=== PATIENT | female | born 1940 | race Caucasian/White ===

== ENCOUNTER → 2017-12-23 09:38 | Outpatient (CLI) | payer MEDICARE, OTHER, SELFPAY ==
[2017-12-22 13:08] VITALS: BP 104/60; BMI 23.9
--- NOTE | 2017-12-24 15:26 | PFTCOMP ---
COMPLETE PULMONARY FUNCTION TEST INTERPRETATION Brief HPI: Patient is a 77 year old female, currently under the care of Dr. Peñaloza, who presents to [facility] for complete pulmonary function tests secondary to diagnosis of asthma. Respiratory therapist reports good effort and reproducible results. Interpretation: Forced expiration spirometry shows a mild large airways obstructive ventilatory defect with an FEV1 of 74% predicted. There is a significant bronchodilator response in FVC by ATS criteria. Spirograms are of good quality and plateau slowly, indicating slowly emptying areas of the lungs. The respiratory flow volume loop shows decreased expiratory flow rates at all lung volumes consistent with airway obstruction. Lung volumes by body plethysmography show a normal total lung capacity at 5.65 L, 105% predicted. FRC and RV are elevated out of proportion. Lung volume measurements are consistent with air-trapping. Diffusion capacity by carbon monoxide is normal at 71 % predicted. The airway resistance is elevated. Compared to previous pulmonary function tests from 09/30/2016, there has been a significant change in FVC, FEV1 and DLCO. Impression: Partially reversible mild large airways obstructive ventilatory defect with significant improvement compared to previous testing.
--- NOTE | 2017-12-24 15:29 | PFTCOMP_ITS ---
COMPLETE PULMONARY FUNCTION TEST INTERPRETATION Brief HPI: Patient is a 77 year old female, currently under the care of Dr. Peñaloza , who presents to [facility] for complete pulmonary function tests secondary to diagnosis of asthma. Respiratory therapist reports good effort and reproducible results. Interpretation: Forced expiration spirometry shows a mild large airways obstructive ventilatory defect with an FEV1 of 74% predicted. There is a significant bronchodilator response in FVC by ATS criteria. Spirograms are of good quality and plateau slowly, indicating slowly emptying areas of the lungs. The respiratory flow volume loop shows decreased expiratory flow rates at all lung volumes consistent with airway obstruction. Lung volumes by body plethysmography show a normal total lung capacity at 5.65 L , 105% predicted. FRC and RV are elevated out of proportion. Lung volume measurements are consistent with air-trapping. Diffusion capacity by carbon monoxide is normal at 71 % predicted. The airway resistance is elevated. Compared to previous pulmonary function tests from 09/30/2016, there has been a significant change in FVC, FEV1 and DLCO. Impression: Partially reversible mild large airways obstructive ventilatory defect with significant improvement compared to previous testing.
== END ==
PROVIDERS: Family Provider Family Medicine; PCP Family Medicine; Visit Provider Internal Medicine Critical Care Medicine
DX: J45.909 Unspecified asthma, uncomplicated (principal)
CPT/HCPCS: 94060; 94726; 94729

== ENCOUNTER → 2018-03-03 10:32 | Outpatient (CLI) | payer MEDICARE, OTHER, SELFPAY ==
[2018-03-03 11:40] LABS: Rheumatoid Factor < 10.0 IU/mL (<15)
[2018-03-06 03:07] LABS: Cytoplasmic Ab (C-ANCA) <1:20 titer (Neg:<1:20)
[2018-03-06 11:17] LABS: CCP IgG Antibodies 4 units (0-19); Perinuclear Ab (P-ANCA) <1:20 titer (Neg:<1:20)
== END ==
PROVIDERS: Family Provider Family Medicine; PCP Family Medicine; Visit Provider Internal Medicine Critical Care Medicine
DX: J45.909 Unspecified asthma, uncomplicated (principal)
CPT/HCPCS: 36415; 86200; 86256; 86431

== ENCOUNTER → 2018-03-24 09:50 | Outpatient (CLI) | payer MEDICARE, OTHER, SELFPAY ==
[2018-03-24 10:04] VITALS: BP 117/68; PULSE 67; RESP 18; TEMP 36.4; O2SAT 93; BMI 23.8
[2018-03-24] MEDS: Mepolizumab 100 MG VIAL SQ (10:15)
[2018-03-24 11:13] VITALS: BP 114/61; PULSE 62; RESP 18; TEMP 36.6; O2SAT 96
== END ==
PROVIDERS: Family Provider Family Medicine; PCP Family Medicine; Visit Provider Internal Medicine Critical Care Medicine
DX: J45.909 Unspecified asthma, uncomplicated (principal)
CPT/HCPCS: 96372; J2182

== ENCOUNTER → 2018-04-21 10:00 | Outpatient (CLI) | payer MEDICARE, OTHER, SELFPAY ==
--- NOTE | 2018-04-21 10:00 | DT_ITS ---
This patient was seen during an EMR downtime April 20, 2018 - April 27, 2018. This patient may have a combination of paper and electronic documentation or all paper documentation. All documentation is viewable within the e-chart portion of [facility] for each patient visit.
== END ==
PROVIDERS: Family Provider Family Medicine; PCP Family Medicine; Visit Provider Internal Medicine Critical Care Medicine
DX: J45.909 Unspecified asthma, uncomplicated (principal)
CPT/HCPCS: 96372; J2182

== ENCOUNTER → 2019-02-11 12:48 | Outpatient (CLI) | payer MEDICARE, OTHER, SELFPAY ==
[2019-01-18 10:17] VITALS: BMI 22.5
--- NOTE | 2019-02-11 12:50 | ECHOD_ITS ---
Reason For Study: PHTN Procedure This was a 2D Doppler, Color Flow transthoracic echocardiogram. Exam performed in department. Left Ventricle Normal size and thickness. The estimated ejection fraction is 65 %. Stage 1 diastolic dysfunction. No regional wall motion abnormalities noted. Right Ventricle Mildly dilated right ventricle. Normal systolic function. Atria Normal left atrium. Normal right atrium. Normal atrial septum. Bubble contrast study negative for right to left interatrial shunt. Mitral Valve Moderate focal mitral valve thickening. Severe mitral annular calcification extending into the posterior leaflet. Mild-Moderate (1-2+) mitral valve insufficiency. Tricuspid Valve Normal tricuspid valve. Mild to moderate (1-2+) tricuspid valve insufficiency. Right ventricular systolic pressure estimated to be 36 mmHg. Aortic Valve Trisinus/trileaflet aortic valve. Prosthetic aortic valve strands. Pulmonic Valve Normal pulmonic valve. Mild (1+) pulmonic valve insufficiency. Great Vessels Normal aortic root. Normal arch. Normal inferior vena cava. Inferior vena cava collapse with sniff. Pericardium/Pleural No pericardial effusion. Medication 22 gauge I.V. with prn adaptor inserted into right arm. Performed a rapid injection of agitated mix of 9 cc saline and 1cc air to assess for atrial septal defect. MMode/2D Measurements & Calculations LVIDd: 4.3 cm IVSd: 1.4 cm Ao root diam: 3.3 cm LVIDs: 2.4 cm LVPWd: 0.66 cm LA dimension: 4.3 cm RVDd: 3.9 cm FS: 44.7 % LAV(MOD-sp4): 61.2 ml LA A4 area: 19.8 cm2 RA A4 area: 17.8 cm2 Time Measurements MV dec time: 0.38 sec Doppler Measurements & Calculations MV E max robert: 87.6 cm/sec Lat Peak E' Robert: 6.1 cm/sec Med Peak E' Robert: 5.9 cm/sec MV A max robert: 114.7 cm/sec E/E' lat: 14.4 E/E' med: 14.9 MV E/A: 0.76 MV V2 max: 155.0 cm/sec MV P1/2t max robert: 117.5 cm/sec Ao V2 max: 151.0 cm/sec MV max P.6 mmHg MV P1/2t: 150.7 msec Ao max P.1 mmHg MV V2 mean: 78.1 cm/sec MV dec slope: 228.3 cm/sec2 Ao V2 mean: 89.4 cm/sec MV mean P.9 mmHg Ao mean P.8 mmHg MV V2 VTI: 55.1 cm MVA(P1/2t): 1.5 cm2 Ao V2 VTI: 29.2 cm LV V1 max: 100.0 cm/sec MR max robert: 484.2 cm/sec PA V2 max: 96.3 cm/sec LV V1 max P.0 mmHg MR max P.8 mmHg LV V1 mean P.7 mmHg MR mean robert: 361.8 cm/sec LV V1 mean: 58.6 cm/sec MR mean P.4 mmHg LV V1 VTI: 21.8 cm MR VTI: 165.9 cm TR max robert: 276.9 cm/sec PI dec slope: 179.0 cm/sec2 TR max P.7 mmHg Interpretation Summary The estimated ejection fraction is 65 %. Stage 1 diastolic dysfunction. Mildly dilated right ventricle. Bubble contrast study negative for right to left interatrial shunt. Mild-Moderate (1-2+) mitral valve insufficiency. Mild to moderate (1-2+) tricuspid valve insufficiency. Right ventricular systolic pressure estimated to be 36 mmHg. Compared to echo report dated 09/15/2017, no appreciable changes noted. Ordering Physician: Kaden Lainez Referring Physician: Kaden Lainez Performed By: Osmany Silveira RCS
== END ==
PROVIDERS: Family Provider Family Medicine; PCP Family Medicine; Referring Provider Internal Medicine Cardiovascular Disease; Visit Provider Internal Medicine Cardiovascular Disease
DX: Z98.890 Other specified postprocedural states (principal)
CPT/HCPCS: 93306; A4216

== ENCOUNTER → 2020-05-31 10:30 | Outpatient (CLI) | payer MEDICARE, OTHER, SELFPAY ==
[2020-02-17 09:27] VITALS: BMI 21.6
--- NOTE | 2020-05-31 10:32 | ECHOD_ITS ---
Reason For Study: PHTN Procedure This was a 2D Doppler, Color Flow transthoracic echocardiogram. Exam performed in department. Left Ventricle Normal size and thickness. The estimated ejection fraction is 65 %. Stage 1 diastolic dysfunction. No regional wall motion abnormalities noted. Right Ventricle Normal size and thickness. Normal systolic function. Atria The left atrium is moderately enlarged. Normal right atrium. Normal atrial septum. Mitral Valve Mild diffuse mitral valve thickening. Severe mitral annular calcification extending into the posterior leaflet. Moderately severe (3+) mitral valve insufficiency. Tricuspid Valve Normal tricuspid valve. Mild to moderate (1-2+) tricuspid valve insufficiency. Right ventricular systolic pressure estimated to be 37 mmHg. Mild pulmonary hypertension. Aortic Valve Trisinus/trileaflet aortic valve. Pulmonic Valve Normal pulmonic valve. Great Vessels Normal aortic root. Normal arch. Normal inferior vena cava. Inferior vena cava collapse with sniff. Pericardium/Pleural No pericardial effusion. MMode/2D Measurements & Calculations LVIDd: 4.6 cm IVSd: 0.93 cm Ao root diam: 3.5 cm LVIDs: 3.0 cm LVPWd: 0.82 cm RVDd: 3.4 cm FS: 36.1 % LAV(MOD-bp): 112.4 ml LVAd ap4: 26.5 cm2 SV(MOD-sp4): 48.8 ml LAV(MOD-bp) Indexed: 65.1 ml/m2 EDV(MOD-sp4): 79.1 ml LAV(MOD-sp2): 137.5 ml EDV(sp4-el): 78.2 ml LAV(MOD-sp4): 86.5 ml LVAs ap4: 15.0 cm2 ESV(MOD-sp4): 30.3 ml ESV(sp4-el): 30.3 ml EF(MOD-sp4): 61.7 % EF(sp4-el): 61.3 % SV(sp4-el): 47.9 ml LA A4 area: 26.4 cm2 LA dimension(2D): 4.8 cm RA A4 area: 18.9 cm2 Time Measurements MV dec time: 0.44 sec Doppler Measurements & Calculations MV E max robert: 115.0 cm/sec Lat Peak E' Robert: 7.4 cm/sec Med Peak E' Robert: 4.2 cm/sec MV A max robert: 132.8 cm/sec E/E' lat: 15.6 E/E' med: 27.4 MV E/A: 0.87 MV V2 max: 125.1 cm/sec Ao V2 max: 140.6 cm/sec AI max robert: 360.0 cm/sec MV max P.3 mmHg Ao max P.9 mmHg AI max P.8 mmHg MV V2 mean: 65.0 cm/sec MV mean P.2 mmHg AI dec slope: 131.6 cm/sec2 MV V2 VTI: 51.7 cm AI P1/2t: 801.1 msec LV V1 max: 102.2 cm/sec PA V2 max: 110.4 cm/sec TR max robert: 301.0 cm/sec LV V1 max P.2 mmHg TR max P.7 mmHg MV P1/2t-pr_phl: 106.5 msec Interpretation Summary The estimated ejection fraction is 65 %. Stage 1 diastolic dysfunction. The left atrium is moderately enlarged. Moderately severe (3+) mitral valve insufficiency. Mild to moderate (1-2+) tricuspid valve insufficiency. Right ventricular systolic pressure estimated to be 37 mmHg. Mild pulmonary hypertension. Compared to echo report dated 02/11/2019, LV function has remained the same, but might regurgitation is gone from mild to moderate to moderately severe. Ordering Physician: Kaden Lainez Referring Physician: COURT VIERA Performed By: Elidia Amos, LANI, RVT
== END ==
PROVIDERS: PCP Family Medicine; Referring Provider Internal Medicine Cardiovascular Disease; Visit Provider Internal Medicine Cardiovascular Disease
DX: I27.20 Pulmonary hypertension, unspecified (principal); I36.1 Nonrheumatic tricuspid (valve) insufficiency
CPT/HCPCS: 93306

== ENCOUNTER → 2021-07-31 12:39 | Outpatient (CLI) | payer MEDICARE, OTHER, SELFPAY ==
--- NOTE | 2021-07-31 12:41 | ECHOD_ITS ---
Reason For Study: Nonrheumatic mitral valve insufficiency, TR. Procedure This was a 2D Doppler, Color Flow transthoracic echocardiogram. The exam was of adequate technical quality. Exam performed in department. Left Ventricle Normal LV size. Mid cavitary false tendon noted. Left ventricular systolic function is normal. The estimated ejection fraction is 55 %. No regional wall motion abnormalities noted. Right Ventricle Normal RV size. Normal systolic function. Atria The left atrium is severely enlarged. The right atrium is mildly enlarged. No doppler evidence for ASD. Mitral Valve There is severe mitral annular calcification. Extension of the mitral annular calcification onto the base of the posterior mitral valve leaflet. Mild diffuse mitral valve thickening. The mitral valve chordae are thickened and/or calcified. Moderately severe (3+) mitral valve insufficiency. Tricuspid Valve Normal tricuspid valve. Moderate (2+) tricuspid valve insufficiency. Right ventricular systolic pressure estimated to be 45 mmHg. Aortic Valve Trisinus/trileaflet aortic valve. Mild diffuse aortic valve thickening. Mild focal aortic valve calcification. Trivial aortic valve insufficiency. Pulmonic Valve The pulmonic valve is not well visualized. Trivial pulmonic valve insufficiency. Great Vessels Normal sized aortic root. Pericardium/Pleural No pericardial effusion. MMode/2D Measurements & Calculations LVIDd: 5.0 cm IVSd: 1.1 cm Ao root diam: 3.1 cm LVIDs: 3.4 cm LVPWd: 0.99 cm RVDd: 3.3 cm FS: 32.1 % LAV(MOD-bp): 112.0 ml LA A4 area: 30.9 cm2 LA dimension(2D): 4.9 cm LAV(MOD-bp) Indexed: 63.9 ml/m2 LAV(MOD-sp2): 107.8 ml LAV(MOD-sp4): 116.8 ml RA A4 area: 23.1 cm2 Doppler Measurements & Calculations MV E max robert: 137.9 cm/sec Lat Peak E' Robert: 15.1 cm/sec Med Peak E' Robert: 7.9 cm/sec MV A max robert: 47.2 cm/sec E/E' lat: 9.2 E/E' med: 17.6 MV E/A: 2.9 MV V2 max: 155.3 cm/sec Ao V2 max: 100.7 cm/sec LV V1 max: 84.9 cm/sec MV max P.7 mmHg Ao max P.1 mmHg LV V1 max P.9 mmHg MV V2 mean: 68.6 cm/sec MV mean P.4 mmHg MV V2 VTI: 33.4 cm MR max robert: 532.5 cm/sec PA V2 max: 61.8 cm/sec TR max robert: 311.1 cm/sec MR max P.5 mmHg TR max P.9 mmHg MR mean robert: 388.7 cm/sec MR mean P.4 mmHg MR VTI: 176.9 cm ECHO/Echo Complete Interpretation Summary Left ventricular systolic function is normal. The estimated ejection fraction is 55 %. Mid cavitary false tendon noted. The left atrium is severely enlarged. The right atrium is mildly enlarged. There is severe mitral annular calcification. Extension of the mitral annular calcification onto the base of the posterior mi tral valve leaflet. Mild diffuse mitral valve thickening. The mitral valve chordae are thickened and/or calcified. Moderately severe (3+) mitral valve insufficiency. Moderate (2+) tricuspid valve insufficiency. Mild diffuse aortic valve thickening. Mild focal aortic valve calcification. Trivial aortic valve insufficiency. Trivial pulmonic valve insufficiency. Right ventricular systolic pressure estimated to be 45 mmHg. Transmitral diastolic flow velocities suggest diastolic dysfunction (pseudonorm al pattern). Comment: Small mobile echodensity on the ventricular aspect of the aortic valve appearing compatible with a Lamble's excrescence. Ordering Physician: Александр Hernández Referring Physician: Yemi Peñaloza Performed By: Namrata Ayala, RDCS, RVT
== END ==
PROVIDERS: PCP Family Medicine; Referring Provider Internal Medicine Cardiovascular Disease; Visit Provider Internal Medicine Cardiovascular Disease
DX: I34.0 Nonrheumatic mitral (valve) insufficiency (principal); I49.49 Other premature depolarization; I38 Endocarditis, valve unspecified; E78.5 Hyperlipidemia, unspecified; I43 Cardiomyopathy in diseases classified elsewhere
CPT/HCPCS: 93225; 93226; 93306

== ENCOUNTER 2021-10-16 10:12 | Day surgery (SDC) | payer MEDICARE, OTHER, SELFPAY ==
[2021-10-15 10:26] VITALS: BMI 23.5
--- NOTE | 2021-10-15 18:05 | HP.PCM_ITS ---
History and Physical Date of Admission: 10/16/21 [facility] [id number] [place], [place] [phone] OFFICE VISITDate of Service: 09/21/21 MR#:[id number]:[id number]: BOZENA EDWARDS YRep #:[id number] Provider: HALLE Ferguson/Sex: 81/F [place] [place] HPI HPI History of Present Illness Details: This is an 81-year-old female that presents here today for cardiovascular follow-up. She has a history of nonischemic coronary artery disease, elevated pulmonary pressures, hypertension and hyperlipidemia. She was recently diagnosed with Afib. She notes that she is tired. She notes that over the several months she has been more SOB. She does have some edema. This does get worse when she is on her feet for too long. She does sometimes feel her heart racings. She finds that with exertional things she is more fatigue.She does not have any lightheadedness/dizziness. Intake Vital Signs 09/21/21 14:31 Height 5 ft 7 in Weight: 150 lb BMI 23.5 BP 121/71 H Blood Pressure Location Lt brachial Position Sitting Respiration 18 Pulse 87 Pulse Source Monitor Pulse Oximetry (%) 95 Intake Visit Reasons: Atrial fibrillation Communications Lead Required: No Accompanied by: None Is patient in pain?: No Allergies No Known Allergies Allergy (Verified 09/21/21 14:31) Medications aspirin 81 mg tablet,delayed release 81 mg PO QDAY 11/22/17 [History Confirmed 09/21/21] calcium carb-Ca gluc 500 mg calcium-magnesium ox-Mg gluc 250 mg tablet tab PO DAILY 11/22/17 [History Confirmed 07/11/21] fluticasone propionate 50 mcg/actuation nasal spray,suspension 50 mcg INTRANASAL DAILY 11/22/17 [History Confirmed 07/11/21] omeprazole 20 mg capsule,delayed release 20 mg PO DAILY 11/22/17 [History Confirmed 07/11/21] fluticasone 500 mcg-salmeterol 50 mcg/dose blistr powdr for inhalation 1 inh INHALATION Q12H 06/12/18 [History Confirmed 07/11/21] loratadine 10 mg tablet 10 mg PO DAILY 02/17/20 [History Confirmed 07/11/21] atorvastatin 10 mg tablet 10 mg PO QDAY #90 tab 07/09/21 [Rx Confirmed 09/21/21] losartan 25 mg tablet 25 mg PO QDAY #90 tab 07/09/21 [Rx Confirmed 09/21/21] albuterol sulfate 2.5 mg INHALATION Q4H PRN 07/11/21 [History Confirmed 09/21/21] albuterol sulfate 90 mcg/actuation aerosol inhaler 1 inh INHALATION ONCE PRN 07/11/21 [History Confirmed 09/21/21] dexamethasone sodium phosphate 0.1 % eye drops 1 applic OTIC (EAR) BID 07/11/21 [History Confirmed 07/11/21] levothyroxine 150 mcg tablet 150 mcg PO DAILY 07/11/21 [History Confirmed 09/21/21] multivitamin 1 tab PO DAILY 07/11/21 [History Confirmed 07/11/21] amiodarone 200 mg tablet 200 mg PO DAILY #30 tab 08/06/21 [Rx Confirmed 09/21/21] hydrochlorothiazide 12.5 mg tablet 12.5 mg PO DAILY #90 tab 08/13/21 [Rx Confirmed 09/21/21] apixaban 5 mg tablet 5 mg PO BID #180 tab 08/24/21 [Rx Confirmed 09/21/21] metoprolol succinate 25 mg tablet,extended release 24 hr 25 mg PO DAILY #90 tab 09/10/21 [Rx Confirmed 09/21/21] [facility] Medical History Asthma Atrial fibrillation Atrial tachycardia, paroxysmal Bronchitis Cardiac aneurysm Cardiomyopathy in disease classified elsewhere Ectopic cardiac beats GERD (gastroesophageal reflux disease) Hyperlipidemia Hypothyroidism Kidney stone 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 Mitral valve annular calcification Nonrheumatic mitral (valve) insufficiency On amiodarone therapy Other secondary pulmonary hypertension Palpitations SOB (shortness of breath) Valvular heart disease Surgical History History of nasal septoplasty History of right and left heart catheterization (07/09/16) Family History Mother Heart disease Brother A-fib Sister A-fib Social History Smoking Status: Never smoker second hand exposure: No alcohol intake: never substance use type: does not use caffeine: Yes Type: coffee ROS Const Const: Positive for fatigue; Negative for weakness, headache(s), frequent falls, excessive sweating, weight gain or weight loss Eyes Eyes: Negative for blind spots, loss of peripheral vision, transient loss of vision, blurry vision, change in vision or double vision ENT ENT: Negative for headache(s), dizziness, tinnitus, Nosebleed/epistaxis or balance problems Cardio Chest Pain: No Palpitations: No Edema: None Muscle aches with walking: None Resp Respiratory: Positive for SOB with activity; Negative for SOB at rest, SOB orthopnea\SOB lying down or Cough GI GI: Negative nausea, vomiting, heartburn, bloating, vomiting blood/hematemesis, bright, red blood in stools or black,tarry stools : Negative for hematuria Musc Musc: Negative for muscle aches/ myalgia, muscle weakness, joint pain or balance problems Skin Skin: Negative rash or wounds Neuro Neuro: Negative for dizziness, lightheadedness, near syncope, syncope, orthostatic symptoms, frequent falls, headache(s), weakness, confusion, memory loss, restless legs, blurry vision or double vision [place] Hematologic/Lymphatic: Negative for easy bleeding or easy bruising Endo Endo: Positive for fatigue; Negative for cold intolerance, heat intolerance or excessive sweating Psych Psych: Negative for anxiety or depression Allergy Allergy/Immunology: Negative for rash Cardiology Exam Const Appearance: cooperative, healthy appearing, comfortable, no acute distress and well developed Nutritional Appearance: average body habitus Orientation: alert, awake and oriented x3 Head Head: normal to inspection Ears: hearing grossly normal bilaterally Nose: external nose normal Face and Sinus: face symmetric Mouth: oral mucosae normal, lip normal and moist mucous membranes Eyes General: appearance normal, both eyes and all related structures Eyelids: eyelids normal Conjunctivae: conjunctivae normal Pupils: PERRL EOM: EOM intact bilaterally Neck Neck: normal visual inspection and trachea midline; Negative no JVD Carotids: Negative bruit Chest Chest inspection: normal inspection of the chest Auscultation: Bilateral: Clear to Auscultation Cardio Palpation: normal PMI Rate: regular rate Rhythm: irregularly irregular Heart sounds: S1 normal and S2 normal; Negative rub, gallop or murmur GI GI: soft, no hepatosplenomegaly and bowel sounds present Neuro General: patient alert, patient awake, patient oriented x3 and CN's II-XI intact bilaterally Extremities Pulses: Normal: Right Posterior Tibial Pulse, Left Posterior Tibial Pulse, Right Radial Pulse and Left Radial Pulse Lower Extremity Edema: None: Bilateral Psych Psychological: normal affect Supplemental Info Supplemental Information Echocardiogram from 05/31/2020: Interpretation Summary The estimated ejection fraction is 65 %. Stage 1 diastolic dysfunction. The left atrium is moderately enlarged. Moderately severe (3+) mitral valve insufficiency. Mild to moderate (1-2+) tricuspid valve insufficiency. Right ventricular systolic pressure estimated to be 37 mmHg. Mild pulmonary hypertension. Compared to echo report dated 02/11/2019, LV function has remained the same, but might regurgitation is gone from mild to moderate to moderately severe. Echocardiogram 07/2021: Left ventricular systolic function is normal. The estimated ejection fraction is 55 %. Mid cavitary false tendon noted. The left atrium is severely enlarged. The right atrium is mildly enlarged. There is severe mitral annular calcification. Extension of the mitral annular calcification onto the base of the posterior mitral valve leaflet. Mild diffuse mitral valve thickening. The mitral valve chordae are thickened and/or calcified. Moderately severe (3+) mitral valve insufficiency. Moderate (2+) tricuspid valve insufficiency. Mild diffuse aortic valve thickening. Mild focal aortic valve calcification. Trivial aortic valve insufficiency. Trivial pulmonic valve insufficiency. Right ventricular systolic pressure estimated to be 45 mmHg. Transmitral diastolic flow velocities suggest diastolic dysfunction (pseudonormal pattern). Comment: Small mobile echodensity on the ventricular aspect of the aortic valve appearing compatible with a Lamble's excrescence. 24 HM 07/2021: 100% AFib. Labs: No Data to Display Diagnostics: Electrocardiogram Echocardiogram Pulmonary: No Data to Display Assessment and Plan Assessment and Plan (1) Atrial fibrillation: Status: Acute Orders: Orders: 12 Lead EKG performed by [facility] Today Plan - Ale NERI, PA: Feel that pt is aware of her Afib. Feel that she would benefit from A cardioversion. She would like to think about this. If she agrees would like to pursue after she has been anticoagulated for 1 month. If she does not agree we will then need to consider whether or not she needs to remain on her amiodarone. (2) Mitral valve annular calcification: Status: Chronic Comment: Severe pre echo 02/17/2019 Plan - HALLE Sorenson: Stable, will continue to monitor with echoes. 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 We will continue with current medical treatment. 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 Yemi Peñaloza MD ~ Assessment & Plan Addt'l Comments I have re-examined the patient. There are no clinical changes since date of exam
[2021-10-16 10:40] LABS: Anion Gap 8 (5-15); BUN 11 mg/dL (7-18); BUN/Creat Ratio 11.5 RATIO (10-20); Calcium,Total 8.8 mg/dL (8.5-10.1); Chloride 97 mmol/L (98-107); Creatinine, Serum 0.95 mg/dL (0.55-1.02); EST Glomerular Filtration Rate 60 mL/min (>60); Est Glom Filt Rate - Afr Amer 72 mL/min (>60); Estimated Creatinine Clearance 45.93 ml/min; Glucose 98 mg/dL (74-106); Potassium 4.3 mmol/L (3.5-5.1); Sodium Level 132 mmol/L (136-145)
--- NOTE | 2021-10-16 12:38 | CARDIOVERS_ITS ---
Cardioversion Cardioversion: Date: 10-16-2021 Procedure: Synchronized Biphasic DC Cardioversion Indications: Atrial fibrillation Consent: Per the Patient Anesthesia: per Dr. Hudson of pulmonology and critical care medicine with propofol 40 mg IV push total Procedure: Synchronized Biphasic DC Cardioversion: 200 J x 1: Result: Sinus rhythm; PACs Complications: no apparent complications This note was generated with [employer] software. It may contain incorrect words, spelling, and punctuation that were not noted in checking the note before signing.
--- NOTE | 2021-10-16 14:59 | PRO.PCM_ITS ---
Assessment & Plan Assessment/Plan (1) Atrial fibrillation: (2) On amiodarone therapy: (3) Nonrheumatic tricuspid (valve) insufficiency: (4) Abnormal PFTs (pulmonary function tests): Procedure Report Date of Procedure: 10/16/21 CONSCIOUS SEDATION REPORT BRIEF HISTORY OF PRESENT ILLNESS: The patient is an 81-year-old female who presented to [facility] for an elective outpatient cardioversion due to underlying atrial fibrillation. The patient reports no PO intake since midnight, but is currently therapeutic on anticoagulation. The patient does not have a history of SANDER. The patient reports no history of smoking or COPD. The patient denies any recent constitu tional symptoms such as fevers, chills, nausea or vomiting. The patient denies previous applicable anesthetic complications. Patient's last ejection fraction was 55%. Patient did take Eliquis on the day of the procedure. Patient is very hard of hearing, but does have hearing aids in place. These were removed. Patient reports that most of her symptoms revolve around fatigue and decreased exercise tolerance. PHYSICAL EXAMINATION: VITAL SIGNS: Reviewed and were acceptable. GENERAL: The patient is a female, in no apparent distress, speaking in full sentences. HEENT: Normocephalic, atraumatic. Mucous membranes are moist and pink. Good mouth opening noted. Trachea is midline. Good neck mobility. MP I CHEST: S1, S2 irregularly irregular. No murmurs, rubs or gallops were noted. LUNGS: Clear to auscultation bilaterally without appreciable wheezes, rales or rhonchi. ABDOMEN: Soft, nontender, nondistended. Positive bowel sounds. EXTREMITIES: There is no clubbing, cyanosis or edema. ASA Class: II DESCRIPTION OF PROCEDURE: After confirmation of informed consent, the patient's anesthesia plan was reviewed in detail. Propofol was chosen. Risks and benefits were reviewed and the patient agreed to proceed. At 12:14 PM, the patient was given 40 mg of propofol. The patient achieved an appropriate level of sedation and received 1 attempt synchronized cardioversion, at [address] Hernández at the bedside. This was successful in achieving normal sinus rhythm. The patient was monitored until 12:30 PM, at which time the patient reached their baseline mental status and function. The patient tolerated the procedure well. COMPLICATIONS: None ESTIMATED BLOOD LOSS: None RECOMMENDATIONS: Okay to recover in usual fashion. Procedures Pulmonary 9xxxx: [id number] Con Sedation
== END 2021-10-16 13:27 | disposition home or self-care (01) ==
LOC: CLSP 10:15
PROVIDERS: PCP Family Medicine; Referring Provider Internal Medicine Cardiovascular Disease; Visit Provider Internal Medicine Cardiovascular Disease
DX: I48.91 Unspecified atrial fibrillation (principal); I36.1 Nonrheumatic tricuspid (valve) insufficiency; R94.2 Abnormal results of pulmonary function studies; I25.10 Atherosclerotic heart disease of native coronary artery without angina pectoris; E78.5 Hyperlipidemia, unspecified; I10 Essential (primary) hypertension; R06.02 Shortness of breath; J45.909 Unspecified asthma, uncomplicated; K21.9 Gastro-esophageal reflux disease without esophagitis; I42.9 Cardiomyopathy, unspecified; E03.9 Hypothyroidism, unspecified; Z79.899 Other long term (current) drug therapy; Z79.82 Long term (current) use of aspirin; Z79.01 Long term (current) use of anticoagulants; Z79.890 Hormone replacement therapy
CPT/HCPCS: 36415; 80048; 92960; 93005; J7040; J2405

== ENCOUNTER → 2022-10-23 | Outpatient (CLI) | payer MEDICARE, OTHER, SELFPAY ==
[2022-10-23 08:06] LABS: Absolute Lymphocyte Count 1.55 X10^3/uL (0.83-4.51); Absolute Neutrophil Count 3.2 X10^3/uL (2.0-7.7); Basophil# 0.14 X10^3/uL; Basophil% 2.1 % (0-1); Eosinophil# 0.95 X10^3/uL; Eosinophils% 14.3 % (0-5); Hematocrit 32.1 % (37-47); Hemoglobin 10.1 g/dL (12.0-15.0); Lymphocyte # 1.55 X10^3/ul (0.83-4.51); Lymphocyte % 23.3 % (19-41); Mean Corp Hgb Conc 31.5 g/dL (32-36); Mean Corpuscular Hgb 29.1 pg (27.0-32.0); Mean Corpuscular Volume 92.5 fL (81-99); Mean Platelet Vol. 9.9 fl (6.2-12.0); Monocyte# 0.83 X10^3/uL; Monocyte% 12.5 % (0-10); NRBC Flagged by Analyzer 0 % (0-5); Neutrophil # 3.17 X10^3/uL (2.7-7.7); Neutrophil % 47.6 % (47-70); Platelet Count 322 K/mm3 (150-450); RBC Distribution Width CV 13.6 % (11.6-14.6); Red Blood Count 3.47 M/mm3 (4.2-5.4); White Blood Count 6.7 K/mm3 (4.4-11.0)
[2022-10-26 19:07] LABS: Aspirgillus flavus Negative (Neg:<1:1); Aspirgillus fumigatus Negative (Neg:<1:1); Aspirgillus niger Negative (Neg:<1:1)
[2022-10-26 20:26] LABS: Immunoglobulin E 146 IU/mL (6-495)
[2022-10-27 08:08] LABS: Alternaria tenuis <0.10 kU/L (Class 0); Ash, White <0.10 kU/L (Class 0); Aspergillus fumigatus <0.10 kU/L (Class 0); Bermuda Grass <0.10 kU/L (Class 0); Birch <0.10 kU/L (Class 0); Black Walnut <0.10 kU/L (Class 0); Cat Hair / Dander,Stand <0.10 kU/L (Class 0); Cedar, Mountain <0.10 kU/L (Class 0); Cladosporium herbarum <0.10 kU/L (Class 0); Cockroach, American <0.10 kU/L (Class 0); Cottonwood <0.10 kU/L (Class 0); D farinae Mite <0.10 kU/L (Class 0); D pteronyssinus <0.10 kU/L (Class 0); Dog Epithelia <0.10 kU/L (Class 0); Elm, American White <0.10 kU/L (Class 0); Immunoglobulin E 127 IU/mL (6-495); Maple/Box Elder <0.10 kU/L (Class 0); Mulberry, White <0.10 kU/L (Class 0); Oak, White <0.10 kU/L (Class 0); Pecan <0.10 kU/L (Class 0); Penicillium Notatum <0.10 kU/L (Class 0); Pigweed, Rough <0.10 kU/L (Class 0); Ragweed, Short/Common <0.10 kU/L (Class 0); Russian Thistle <0.10 kU/L (Class 0); Sheep Sorrel <0.10 kU/L (Class 0); Sycamore, American <0.10 kU/L (Class 0); Timothy Grass <0.10 kU/L (Class 0)
[2022-10-27 10:46] LABS: Mouse Urine <0.10 kU/L (Class 0)
== END | disposition home or self-care (01) ==
LOC: PAVLAB 07:51
PROVIDERS: PCP Family Medicine; Referring Provider Internal Medicine Critical Care Medicine; Visit Provider Internal Medicine Critical Care Medicine
DX: J45.50 Severe persistent asthma, uncomplicated (principal)
CPT/HCPCS: 36415; 82785; 85025; 86003; 86606

== ENCOUNTER 2023-03-04 10:44 | Emergency (ER) | payer MEDICARE, OTHER, SELFPAY ==
[2023-03-04 10:45] VITALS: BP 150/72; PULSE 64; RESP 18; TEMP 36.1; O2SAT 98
--- NOTE | 2023-03-04 11:25 | CT_ITS ---
STUDY: CT BRAIN WITHOUT CONTRAST REASON FOR EXAM: Female, 83 years old. Head injury on anticoagulant RADIATION DOSAGE (If Supplied By Facility): CTDIvol = ( 44.99 ) mGy, DLP = ( 846.73 ) mGycm TECHNIQUE: Transaxial CT imaging of the brain was performed without administration of intravenous contrast material. Individualized dose optimization techniques were used for this CT. COMPARISON: No relevant priors. FINDINGS: Small scalp hematoma overlying the right frontoparietal bone. Normal calvarium. There is mild cerebral atrophy with widening of the extra-axial spaces and ventricular dilatation. There are areas of decreased attenuation within the white matter tracts of the supratentorial brain, consistent with microvascular disease changes. Normal basal ganglia and thalami. Normal brainstem. Normal cerebellum. There is no intracranial hemorrhage. There are no findings of an acute ischemic infarction. Atherosclerotic calcification of the cavernous portions of the internal carotid arteries bilaterally. Air-fluid level is seen in the left maxillary sinus and left sphenoid sinus. Partial opacification of the frontal sinuses and the ethmoid sinuses. CT/Brain/Head without Contrast IMPRESSION: Chronic involutional changes of the brain. Sinusitis. Electronically Signed: Trey Miles MD at 12:13 EDT ,
--- NOTE | 2023-03-04 11:25 | CT_ITS ---
STUDY: CT CERVICAL SPINE WITHOUT CONTRAST REASON FOR EXAM: Female, 83 years old. PAIN, TRAUMA RADIATION DOSAGE (If Supplied By Facility): CTDIvol = ( 14.03 ) mGy, DLP = ( 286.49 ) mGycm TECHNIQUE: High resolution transaxial imaging was performed without contrast material. Sagittal and coronal images were reconstructed. Individualized dose optimization techniques were used for this CT. COMPARISON: None FINDINGS: Normal craniovertebral junction. There are degenerative changes of the anterior atlantoaxial articulation. There is a 6.9 mm x 6.8 mm well-defined cystic change in the posterior midportion of the dens. There is an exaggerated cervical lordosis. Normal vertebral bodies and posterior osseous elements. C2-3: Facet joint osteoarthritis and hypertrophy more prominent on the left side. Uncovertebral arthrosis. No significant stenosis seen. C3-4: Facet joint osteoarthritis and hypertrophy worse on the left side with uncovertebral arthrosis. Mild degree of left neural foraminal stenosis. C4-5: Facet joint osteoarthritis and hypertrophy worse on the left side. Mild degree of left neural foraminal stenosis. C5-6: Mild disc space narrowing. Facet joint osteoarthritis and hypertrophy worse on the left side with uncovertebral arthrosis. Moderate degree of bilateral neural foraminal stenosis worse on the left side. C6-7: Normal endplates. Normal disc height and morphology. Normal central canal and intervertebral neuroforamina. C7-T1: Normal endplates. Normal disc height and morphology. Normal central canal and intervertebral neuroforamina. Atherosclerotic plaque formation of the carotid bifurcations and aortic arch. CT/Spine Cervical without Contras IMPRESSION: Multilevel degenerative changes, as described above. Electronically Signed: Trey Miles MD at 12:15 EDT ,
--- NOTE | 2023-03-04 11:25 | RAD_ITS ---
STUDY: X-RAY - RIGHT HUMERUS REASON FOR EXAM: Female, 83 years old. Pain following a fall. TECHNIQUE: 2 view(s) of the humerus. COMPARISON: None. FINDINGS: Normal visualized humerus. There is no demonstrated fracture or osseous destructive process. There is no demonstrated soft tissue abnormality. RAD/Humerus min 2 Views IMPRESSION: Normal x-ray examination of the humerus. Electronically Signed: Trey Miles MD at 12:38 EDT ,
--- NOTE | 2023-03-04 11:28 | EX.ED.GENINJ ---
HPI History of Present Illness Chief Complaint: Head Injury Narrative Narrative: 83-year-old female, takes Eliquis for atrial fibrillation had a mechanical fall approximately a week ago where she fractured her left wrist. She was seen in outside facility and prescribed oxycodone and Ativan. She took an Ativan last night to help her sleep. This morning, she had a fall where there was reported loss of consciousness for a minute or 2. She complains of a headache and a skin tear on her right forearm. She presents with her son for evaluation as she sustained a laceration to her right congregation and is having headaches. She denies any prodromal chest pain or shortness of breath. 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 Mitral valve annular calcification Nonrheumatic mitral (valve) insufficiency On amiodarone therapy Other secondary pulmonary hypertension Palpitations SOB (shortness of breath) Valvular heart disease Home Medications calcium carb-Ca gluc 500 mg calcium-magnesium ox-Mg gluc 250 mg tablet 1 tab PO DAILY 11/22/17 [History Last Taken Unknown] fluticasone propionate 50 mcg/actuation nasal spray,suspension 50 mcg intranasal DAILY 11/22/17 [History Last Taken Unknown] omeprazole 20 mg capsule,delayed release 20 mg PO DAILY 11/22/17 [History Last Taken 10/16/21] albuterol sulfate 90 mcg/actuation aerosol inhaler (ProAir HFA) 1 inh inhalation ONCE PRN Shortness Of Breath 07/11/21 [History Last Taken Unknown] dexamethasone sodium phosphate 0.1 % eye drops 1 applic otic (ear) BID 07/11/21 [History Last Taken Unknown] levothyroxine 150 mcg tablet 150 mcg PO DAILY 07/11/21 [History Last Taken 10/16/21] multivitamin 1 tab PO DAILY 07/11/21 [History Last Taken Unknown] diphenhydramine HCl 25 mg tablet (Benadryl Allergy) 25 mg PO DAILY PRN itching 01/08/22 [History Last Taken Unknown] amiodarone 200 mg tablet 200 mg PO DAILY #90 tabs 06/26/22 [Rx Last Taken Unknown] atorvastatin 10 mg tablet 10 mg PO QDAY #90 tabs 06/26/22 [Rx Last Taken Unknown] losartan 25 mg tablet (Cozaar) 25 mg PO BID #180 tabs 06/26/22 [Rx Last Taken Unknown] hydrochlorothiazide 12.5 mg tablet 12.5 mg PO DAILY swelling in feet or legs #90 tabs 09/09/22 [Rx Last Taken Unknown] metoprolol succinate 25 mg tablet,extended release 24 hr 25 mg PO DAILY #90 tabs 09/09/22 [Rx Last Taken Unknown] apixaban 5 mg tablet (Eliquis) 5 mg PO BID #180 tabs 10/03/22 [Rx Last Taken Unknown] tiotropium 2.5 mcg-olodaterol 2.5 mcg/actuation mist for inhalation (Stiolto Respimat) 2 inh inhalation DAILY #4 grams 11/29/22 [Rx Last Taken Unknown] Nebulizer #1 ea 12/03/22 [Rx Last Taken Unknown] Nebulizer machine #1 ea 12/03/22 [Rx Last Taken Unknown] montelukast 10 mg tablet (Singulair) 10 mg PO QPM #90 tabs 12/03/22 [Rx Last Taken Unknown] albuterol sulfate 2.5 mg/3 mL (0.083 %) solution for nebulization 2.5 mg (3 mL) inhalation Q4H PRN Shortness Of Breath #180 mL 02/10/23 [Rx Last Taken Unknown] budesonide 1 mg/2 mL suspension for nebulization 1 mg (2 mL) inhalation BID #360 mL 02/10/23 [Rx Last Taken Unknown] ipratropium bromide 0.02 % solution for inhalation 2.5 ml inhalation Q6H PRN shortness of breath or wheezing #150 mL 02/10/23 [Rx Last Taken Unknown] Allergy/AdvReac Type Severity Reaction Status Date / Time animal dander Allergy Other Verified 03/04/23 10:47 Family History Mother Heart disease Brother A-fib Sister A-fib Surgical History History of nasal septoplasty History of right and left heart catheterization (07/09/16) Social History Smoking Status: Never smoker second hand exposure: No alcohol intake: never substance use type: does not use caffeine: Yes Type: coffee ROS ROS ED ROS Narrative Constitutional: No fever, no chills. HEENT: No sore throat. No neck pain. No loss of vision. No rhinorrhea. Cardiovascular: No chest pain. No palpitations. No pedal edema. Respiratory: No cough, no shortness of breath. Abdominal: No abdominal pain. No nausea. No vomiting. Genitourinary: No dysuria. No hematuria. Musculoskeletal: No myalgias. No arthralgias. Neurologic: No headaches. No dizziness. No lightheadedness. Skin: No rash. No change in color. Psychiatric: No depression. No anxiety. EXAM Physical Exam Narrative Exam Narrative: Afebrile. Vital signs noted. GCS 15. ABCs are intact. HEENT: Normocephalic. 1.5 cm horizontal laceration to right congregation without active bleeding, no crepitance. PERRL, EOMI. Neck soft and supple. No point tenderness or step off. Cardiovascular: Regular rate and rhythm. No murmurs, rubs, or gallops appreciated. Respiratory: No tachypnea. Lungs clear to auscultation bilaterally. Gastrointestinal: Abdomen soft, nontender, with normoactive bowel sounds. No rebound or guarding. Neurological: Awake. Alert. Nonfocal, nonlateralizing. Skin: No rash. Normal color. No pallor. +3 cm skin avulsion right forearm, no active bleeding Musculoskeletal: No pedal edema. Full range of motion extremities with exception of left wrist which is currently in a splint and sling. Pelvis stable. Const Vital Signs: 03/04/23 10:45 03/04/23 12:12 Temperature 97 F L Temperature Source Temporal Pulse Rate 64 Respiratory Rate 18 Respiratory Effort Normal Non-Labored Respiratory Depth Normal Respiratory Pattern Normal Blood Pressure 150/72 H Blood Pressure Mean 98 Pulse Ox 98 95 Oxygen Delivery Method Room Air Room Air MDM MDM MDM Narrative Medical decision making narrative: Major concern is for concussion versus intracranial hemorrhage as the patient takes Eliquis for atrial fibrillation. CT of the brain was obtained to rule out intracranial hemorrhage. Additionally, I obtained CT of the C-spine given her closed head injury and fall. Regarding the laceration on her right congregation, I discussed with her son that as it is not actively bleeding or gaping that as she is on a blood thinner it may be more traumatic to cleanse the wound and suture it should not require it. He agrees with letting it heal by secondary intent. Regarding the forearm skin avulsion, this will also heal by secondary intent. The wound will be cleansed by RN and nonadherent/Vaseline gauze dressing will be applied. She has diffuse tenderness throughout her right arm. While I have low suspicion for fracture, x-rays were obtained and interpreted by myself of the right humerus and of the right forearm which shows no evidence of an acute fracture. I reviewed the radiology report which confirms my independent interpretation. I also reviewed the CT imaging of the brain and saw no acute hemorrhage, and reviewed the radiology report which was read as chronic involutional changes of the brain. CT of the C-spine shows degenerative changes but no evidence of an acute fracture in review of the radiology report. While she was in radiology, she complained of left hip pain. X-rays were obtained and interpreted by myself which shows no evidence of a pelvic or hip fracture or dislocation. I reviewed the radiology report again which confirms this. At this point in time, I feel she be discharged safely home with follow-up to her primary care provider, and to her orthopod. She was instructed on brain rest. She will be given a Tylenol prior to discharge. Return instructions to the emergency department were reviewed. Disposition is discharged home in stable condition. Radiography Diagnostic Testing: Clinical Impression(s) from Imaging Studies Brain CT 03/04/23 11:25 IMPRESSION: Chronic involutional changes of the brain. Sinusitis. Electronically Signed: Trey Miles MD at 12:13 EDT , Cervical Spine CT 03/04/23 11:25 IMPRESSION: Multilevel degenerative changes, as described above. Electronically Signed: Trey Miles MD at 12:15 EDT , Humerus X-Ray 03/04/23 11:25 IMPRESSION: Normal x-ray examination of the humerus. Electronically Signed: Trey Miles MD at 12:38 EDT , Forearm X-Ray 03/04/23 12:10 IMPRESSION: No acute abnormality is seen. Degenerative changes at the first carpometacarpal joint. Electronically Signed: Trey Miles MD at 12:38 EDT , Hip/Pelvis X-Ray 03/04/23 12:15 IMPRESSION: No acute abnormality is seen. Electronically Signed: Trey Miles MD at 12:39 EDT , Discharge Plan Triage Chief Complaint: Head Injury ED Provider: Dhiraj Landin Dx/Rx/DC Orders Clinical Impression: Fall, Laceration of forehead, Closed head injury, Skin tear of right forearm without complication, Hip pain Instructions: ED Fall with Uncertain Cause, ED Head Injury (Adult), ED Laceration Small or ..., ED Skin Avulsion Prescriptions: No Action Ca carb-Ca gluc-Mg ox-Mg gluco 500 mg calcium -250 mg tablet 1 tab PO DAILY omeprazole 20 mg capsule,delayed release(DR/EC) 20 mg PO DAILY fluticasone propionate 50 mcg/actuation spray,suspension 50 mcg INTRANASAL DAILY levothyroxine 150 mcg tablet 150 mcg PO DAILY dexamethasone sodium phosphate 0.1 % drops 1 applic otic (ear) BID multivitamin Tablet 1 tab PO DAILY albuterol sulfate [ProAir HFA] 90 mcg/actuation HFA aerosol inhaler 1 inh inhalation ONCE PRN (Reason: Shortness Of Breath) diphenhydramine HCl [Benadryl Allergy] 25 mg tablet 25 mg PO DAILY PRN (Reason: itching) (DME) Nebulizer See Rx Instructions .ROUTE .MEDSUPPLY Qty: 1 0RF Rx Instructions: As directed (DME) Nebulizer machine See Rx Instructions .ROUTE .MEDSUPPLY Qty: 1 0RF Rx Instructions: As directed montelukast [Singulair] 10 mg tablet 10 mg PO QPM Qty: 90 3RF losartan [Cozaar] 25 mg tablet 25 mg PO BID Qty: 180 3RF amiodarone 200 mg tablet 200 mg PO DAILY Qty: 90 3RF atorvastatin 10 mg tablet 10 mg PO QDAY Qty: 90 3RF metoprolol succinate 25 mg tablet extended release 24 hr 25 mg PO DAILY Qty: 90 3RF hydrochlorothiazide 12.5 mg tablet 12.5 mg PO DAILY Qty: 90 3RF Eliquis 5 mg tablet 5 mg PO BID Qty: 180 4RF Stiolto Respimat 2.5-2.5 mcg/actuation mist 2 inh inhalation DAILY Qty: 4 2RF budesonide 1 mg/2 mL suspension for nebulization 1 mg inhalation BID Qty: 360 6RF albuterol sulfate 2.5 mg /3 mL (0.083 %) solution for nebulization 2.5 mg inhalation Q4H PRN (Reason: Shortness Of Breath) Qty: 180 11RF ipratropium bromide 0.02 % solution 2.5 ml inhalation Q6H PRN (Reason: shortness of breath or wheezing) Qty: 150 6RF Primary Care Provider: Yemi Peñaloza Referrals: Yemi Peñaloza MD [Primary Care Provider] - 1 Week if not improving Disposition Disposition: Home, Self Care
--- NOTE | 2023-03-04 12:10 | RAD_ITS ---
STUDY: X-RAY - RIGHT RADIUS AND ULNA REASON FOR EXAM: Female, 83 years old. Right forearm pain following a fall. TECHNIQUE: 2 view(s) of the forearm. COMPARISON: None. FINDINGS: There is no demonstrated soft tissue swelling. Normal visualized radius. Normal visualized ulna. Degenerative changes at the first carpometacarpal joint. RAD/Forearm 2 Views IMPRESSION: No acute abnormality is seen. Degenerative changes at the first carpometacarpal joint. Electronically Signed: Trey Miles MD at 12:38 EDT ,
[2023-03-04 12:12] VITALS: O2SAT 95
--- NOTE | 2023-03-04 12:15 | RAD_ITS ---
STUDY: X-RAY - PELVIS AND LEFT HIP REASON FOR EXAM: Female, 83 years old. Pain TECHNIQUE: 3 views of the pelvis and hip. COMPARISON: None. FINDINGS: Moderate amount of fecal material is seen in the colon. There are multiple calcified phleboliths. Calcified fibroid uterus. Normal bilateral iliac wings, sacroiliac joints and visualized sacrum. Normal bilateral superior and inferior pubic rami. Normal pubic symphysis. Normal bilateral ischial tuberosities. Normal visualized femoral head. Normal acetabulum. Normal hip joint. RAD/HIP, UNI W/ Pelvis 2-3 Views IMPRESSION: No acute abnormality is seen. Electronically Signed: Trey Miles MD at 12:39 EDT ,
[2023-03-04 14:00] VITALS: PULSE 76; RESP 18; O2SAT 98
[2023-03-04] MEDS: Acetaminophen 500 MG Tablet 1000 MG PO (14:01)
[2023-03-04 14:02] VITALS: BMI 20.5
== END 2023-03-04 14:15 | disposition home or self-care (01) ==
PROVIDERS: Emergency Provider Emergency Medicine; PCP Family Medicine; Visit Provider Emergency Medicine
DX: I48.91 Unspecified atrial fibrillation (principal); S51.801A Unspecified open wound of right forearm, initial encounter; S01.81XA Laceration without foreign body of other part of head, initial encounter; E78.5 Hyperlipidemia, unspecified; Z79.01 Long term (current) use of anticoagulants; W19.XXXA Unspecified fall, initial encounter; M25.552 Pain in left hip
CPT/HCPCS: 70450; 72125; 73060; 73090; 73502; 99283

== ENCOUNTER 2023-04-10 13:32 | Observation (INO) | payer MEDICARE, OTHER, SELFPAY ==
[2023-04-10] VITALS (11 sets, daily range): BP systolic 109–135; BP diastolic 55–61; PULSE 55–66; RESP 14–18; TEMP 36.2–36.9; O2SAT 96–100; BMI 22.5
[2023-04-10] MEDS: Lactated Ringers 1,000 ML 15 ML IV ×2 (10:07→13:49)
[2023-04-10 10:32] LABS: Thyroid Stim Hormone (TSH) 0.49 uIU/mL (0.358-3.74)
--- NOTE | 2023-04-10 10:57 | RAD_ITS ---
INDICATION: ORIF DISTAL RADIUS, POSSIBLE EXTERNAL FIXATOR EXAMINATION/TECHNIQUE: X-RAY - LEFT XR Wrist 2 Views 5 VIEWS COMPARISON: None RAD/Wrist 2 Views IMPRESSION: 4 intraoperative fluoroscopic images of distal left radius fixation. Electronically Signed: Александр Kimball MD at 16:44 EDT ,
[2023-04-10] MEDS: Cefazolin 2 GM in 0.9% Normal Saline 100 ML IV (11:10)
[2023-04-10] MEDS: Lidocaine 1%/Epi 1:200 (30ml) 30 ML AMPUL (11:40)
[2023-04-10] MEDS: Acetaminophen 500 MG Tablet 1000 MG PO ×2 (14:55→21:29)
[2023-04-10] MEDS: Ketorolac 15 MG/ML Vial IV (14:55)
--- NOTE | 2023-04-10 15:26 | OP.PCM_ITS ---
Report of Operation Date of Procedure: 04/10/23 Description of Surgical Findings:: Preoperative diagnosis: 1. Subacute comminuted intra-articular left distal radius fracture 2. Left carpal tunnel syndrome Postoperative diagnosis: 1. Subacute comminuted intra-articular left distal radius fracture 2. Left carpal tunnel syndrome Procedure: 1. Open reduction internal fixation left distal radius fracture greater than 3 parts with application of spanning external fixator 2. Left open carpal tunnel release Surgeon: Kingsley James DO Dance Artist: Loly Hassan PA-C Anesthesia: MAC with axillary block Anesthesiologist: Dr. Fernandez Complications: None Drains: None Estimated blood loss: 25 cc Urinary output: None recorded IV fluids: 900 cc crystalloid Specimens: None Surgical implants: Synthes distal radius external fixator with pins x4 and 200 mm lisseth, 0.054 K wire x1 Surgical indications: This is a 83-year-old female seen in the outpatient setting after a fall on an outstretched left hand approximately 6 weeks ago. She was seen by my partner and subsequently referred to myself. She was diagnosed with a left distal radius complex intra-articular fracture as well as acute carpal tunnel syndrome. She opted for nonoperative management and adamantly declined any surgical intervention. She was comfortable in a splint for several weeks. I followed up with the patient periodically over the last several weeks. Her pain has been worsening. Paresthesias of been stable in her left hand. I expressed my concern regarding her chronic pain in the left wrist. I advocated for surgical intervention. We did obtain cardiac clearance prior to the procedure. Given her consistent pain without relief with bracing, splinting, and oral analgesics, patient wished to proceed with surgery. The risks, benefits, alternatives to the procedure reviewed with the patient at length and she agreed to proceed. Risks include but are not limited to bleeding, flexion, loss of life or limb, need for additional surgery, persistent pain, persistent paresthesias, nonhealing bone or wounds, neurovascular injury, DVT or PE. Patient expressed understanding his risk and wished to proceed with surgery. I recommended left distal radius open reduction internal fixation with possible application of external fixator and open carpal tunnel release. Description of procedure: Patient was seen in preoperative holding area. She was identified by name, medical record number, date of . The operative extremity was marked with a surgical marker. We confirmed informed consent with the patient and all questions were answered to her satisfaction. An axillary block was administered by anesthesia staff prior to the procedure. At time of her procedure, patient was brought to the operative suite and positioned supine on a standard operating table. All bony prominences were well-padded. Gentle MAC anesthesia was administered. After adequate anesthesia, a well-padded pneumatic tourniquet was applied to the upper arm of the operative extremity. We then spun the bed 90 degrees. We prepped and draped the operative extremity in a normal, sterile orthopedic fashion. We then performed a timeout with all parties in attendance in agreement the side, site, and operation be performed. No concerns were voiced and we elected to proceed. 2 g Ancef was administered for antibiotic prophylaxis prior to the incision by anesthesia staff. I first exsanguinated the operative extremity with an Esmarch bandage. Tourniquet was inflated to 250 mmHg. Esmarch was removed. I first turned my attention to the carpal tunnel. Anesthesia was confirmed. A standard open carpal tunnel release was made in line with the fourth ray proximal to Rollins's cardinal line and distal to the wrist crease. Skin was sharply incised down to the level of the palmar fascia. Heiss retractor was placed. Palmar fascia was split in line with the incision. Heiss retractor was taken deeper. Transcarpal ligament was identified and split in line with the incision. Carpal tunnel contents were examined. There is scarring of the median nerve noted to the undersurface of the transverse carpal ligament. Otherwise, the median nerve appeared benign. I then turned my attention to the wrist. There was no significant mobility of the fracture site noted with closed reduction maneuvers. I then elected to open the distal radius. I planned a standard FCR approach over the flexor carpi radialis tendon along the volar wrist. Skin was sharply incised with a 15 blade scalpel down to the level of the tendon sheath. The FCR tendon sheath was identified and split longitudinally in line with the incision. I then retracted the FCR tendon ulnarly, split the floor of the tendon sheath in line with the incision. The flexor pollicis longus muscle belly was then encountered and retracted ulnarly. The pronator quadratus was then encountered. A self-retaining retractor was placed deep. Performed an L-shaped tenotomy of the pronator quadratus and subperiosteally elevated it ulnarly. This exposed the fracture site. Fracture was significantly stable with developing malunion. A curved osteotome was used to perform an ostial chalasis at the metaphysis. I was then able to reapproximate the fracture fragments in a more anatomic manner, however significant radial shortening still persisted. I did not perform an osteoclasis of the intra-articular split. I was able to place a K wire through the radial styloid and achieve reasonable reduction. I selected a 3 hole standard volar locking plate but given the persistent deformity, I felt adequate fixation was unlikely. At this time I elected to proceed with external fixator placement. I made a longitudinal incision along the bare area of the distal dorsal radial diaphysis. Skin was sharply incised with 15 blade scalpel. Blunt dissection was carried down to the dorsal fascia which was opened in line with the incision. Dorsal radial shaft was cleared from periosteum. 2 parallel pins were placed bicortically with excellent fixation. In similar fashion, I turned attention to the second metacarpal. Dorsal skin incision was made with a 15 blade scalpel. I bluntly dissected down to the periosteum. Protecting the extensor tendons, I drilled bicortically for 2 pins in similar fashion. I then achieved a acceptable reduction on orthogonal fluoroscopy and held the reduction manually while my production administrative assistant constructed and tightened the external fixator. Final fluoroscopic images were obtained. Fracture was stable following fixation. There was significant skin tearing noted along the dorsal wrist from close reduction maneuvers. Wounds were copiously irrigated with normal saline solution. Tourniquet is deflated. Hemostasis was excellent. I reapproximated the carpal tunnel and FCR incisions with interrupted simple 3-0 nylon suture. External fixator sites were closed in interrupted simple fashion with 3-0 nylon suture. Skin tears were reapproximated with 4-0 Monocryl suture in interrupted simple fashion. The K wire was left in place at the radial styloid and bent and trimmed at the skin level. Xeroform was applied to the skin tears as well as the incisions. A well-padded bulky dressing was applied. Need for skilled production administrative assistant: Loly Hassan PA-C was critical to the outcome of the case. During the course of the procedure the physician production administrative assistant played a vital role. Her intimate knowledge of my steps in the procedure aided in safe and expedient completion of the procedure. The HALLE played a vital role in positioning particularly in obtaining the appropriate positioning. The PA was also vital in the retraction of soft tissues during the exposure and protecting vital structures. The PA was also vital and obtaining fracture reduction and assisting with hardware placement. She also played a vital role in closure and dressing application with my direct supervision. Post Operative Plan: Patient will be placed in observation tonight for medical monitoring. Weightbearing: Nonweightbearing operative extremity Antibiotics: Ancef x24 hours DVT Prophylaxis: Restart home Eliquis postoperative day #1 Hayes: None Dressing: Maintain, anticipate dressing change tomorrow X-Rays: 1 week follow-up with x-rays Pain Medication: Judicious narcotics, Tylenol Follow-up: 1 week follow-up with x-rays
[2023-04-10] MEDS: Cefazolin 1 GM/50 ML BAG IV (18:19)
[2023-04-10] MEDS: traMADol 50 MG Tablet PO (18:57)
[2023-04-10] MEDS: Budesonide Respules 0.5 MG/2 ML AMPUL.NEB. 1 MG INHALATION (19:59)
[2023-04-10] MEDS: Losartan Potassium 25 MG Tablet PO (21:29)
[2023-04-10] MEDS: Montelukast 10 MG Tablet PO (21:29)
[2023-04-10] MEDS: Atorvastatin Calcium 10 MG Tablet PO (21:30)
[2023-04-11] VITALS (7 sets, daily range): BP systolic 103–134; BP diastolic 50–78; PULSE 55–65; RESP 16–20; TEMP 36.5–36.7; O2SAT 94–97
[2023-04-11] MEDS: traMADol 50 MG Tablet PO (03:06)
[2023-04-11] MEDS: Cefazolin 1 GM/50 ML BAG IV (03:06)
[2023-04-11] MEDS: Levothyroxine 150 MCG Tablet PO (06:17)
[2023-04-11] MEDS: Acetaminophen 500 MG Tablet 1000 MG PO ×2 (06:17→14:12)
[2023-04-11] MEDS: Budesonide Respules 0.5 MG/2 ML AMPUL.NEB. 1 MG INHALATION (07:40)
[2023-04-11] MEDS: Albuterol 2.5 MG/3 ML VIAL.NEB. INHALATION (07:41)
--- NOTE | 2023-04-11 07:54 | PCM.PN.ORT ---
Subjective Subjective Patient seen and examined. Pain controlled with oral tramadol and Tylenol. Denies any nausea or vomiting. Denies fevers, chills, chest pain or shortness of breath. Objective Data Objective Data Vital Signs: Vital Signs Temp Pulse Resp BP Pulse Ox O2 Del Method O2 Flow Rate 97.7 F L 61 20 H 124/57 H 96 Room Air 100 04/11/23 03:14 04/11/23 03:14 04/11/23 03:14 04/11/23 03:14 04/11/23 03:14 04/11/23 03:14 04/10/23 15:45 Oxygen Flow Rate (L/min) 100 Oxygen Delivery Method Room Air Weight: 139 lb 8.842 oz Body Mass Index (BMI) 22.5 Intake & Output: Intake and Output for Last 24 Hours 04/09/23 04/10/23 04/11/23 23:59 23:59 23:59 Intake Total 315.5 / 515.5 250 / 250 Output Total 400 / 400 Balance -84.5 / 115.5 250 / 250 Lab / Micro Data Labs: Laboratory Results - last 24 hr 04/10/23 09:55: TSH 0.49 Radiography Diagnostic Testing: Radiology Impression Wrist X-Ray 04/10/23 10:57 IMPRESSION: 4 intraoperative fluoroscopic images of distal left radius fixation. Electronically Signed: Александр Kimball MD at 16:44 EDT Reading Location ID and State: [facility] / [place] Tel , Service support , Physical Exam Narrative General - A&Ox3, NAD. VSS/AF. Left upper Extremity - SILT & 5/5 in radial, ulnar, musculocutaneous, axillary, and median nerve distributions. Radial, ulnar pulses 2+. Compartments soft and compressible. BCR in finger tips. Wiggles fingers and thumb on command. Pin sites benign for spanning left wrist external fixator. Serosanguineous drainage noted on dressing. Dressing removed. Wounds benign, well approximated. Assessment & Plan Assessment/Plan (1) Post-op pain: PLAN: POD#1 s/p left wrist open reduction internal fixation with application of external fixator, carpal tunnel release -Patient doing well. Pain controlled. Anticipate discharge home today. -Nonweightbearing left wrist. - Pain control -Occupational Therapy ordered for range of motion of the fingers and elbow - DVT PPX -restart home Eliquis, SCDs, early mobilization - Case management - D/C planning. Recommending home health care for dressing changes/wound care. Okay to maintain surgical dressing until follow-up with me on 04/16/2023.
[2023-04-11] MEDS: Amiodarone 200 MG Tablet PO (11:02)
[2023-04-11] MEDS: APIXABAN 5 MG TABLET PO (11:02)
[2023-04-11] MEDS: Pantoprazole Sodium 20 MG Tablet PO (11:02)
--- NOTE | 2023-04-11 11:51 | CASEMGMT ---
Social Work Pt has a HCPOA on file naming her Rupert Harper. No living will on file. SW updated pt who confirms HCPOA and states she does have a living will. ALONDRA requested document be brought in for scanning into medical record. GLORIA Coe
--- NOTE | 2023-04-11 12:50 | CASEMGMT ---
Discharge Planning HH list created and given to RN CM. Rose Mai
[2023-04-11] MEDS: Metoprolol(XL)Succ 25 MG Tablet PO (14:12)
[2023-04-11] MEDS: hydroCHLOROthiazide 25 MG Tablet PO (14:13)
[2023-04-11] MEDS: Losartan Potassium 25 MG Tablet PO (14:13)
--- NOTE | 2023-04-11 14:15 | CASEMGMT ---
RN?CM?INDUSTRIAL ELECTRICIAN JOURNEYMAN?CM?to room to meet with patient for initial transition planning/care coordination?assessment.?RN?CM?introduced self and role at [facility].? Pt voices understanding and consents to?assessment?at this time.? Pt sitting up in chair in no distress at this time.?Dtr-in-law, Cipriano, @ bedside. Pt is A/O at this time and answers all questions appropriately and some info obtained from Cipriano as well. ? Care providers, pharmacy, and demographics verified/updated at this time. PCP: Dr Yemi Peñaloza Specialists: Dr James--ortho, Dr Peñaloza-pulm, [facility]/Cardiology, Dr Velasquez-ENT Preferred Pharmacy:[facility] Insurance: [facility] Prescription Benefit: Yes? Living Will/HPOA:?Has both LW and HCPOA, who is her , Rupert LNOK: , Rupert. Son, Rafi Living Arrangements: Lives w/ in 2-story home w/3 steps to enter. Son stays w/pt on the weekends. Son and dtr-in-law plan on staying w/pt 09/06 initially to assist as needed. Pt was indep w/ADL's and IADL's up until she fractured her wrist. Since then, her and family have been assisting as needed. Transportation:?Dtr-in-law, Cipriano DME: States has the following DME:?shower chair, RTS, Cane, lift chair, nebulizer ? Pt states no need for further DME at this time.? HHC/SNF:No hx of SNF. Has had HHC in the past and used [facility] for therapy. Pt and Cipriano state would like C for SN for wound care and interested in using [facility] for therapy. A list of HHC providers including quality and resource use data and consistent with the patient?s preferred geographic region, medical needs, and insurance network were provided from the CarePort Guide. Their first choice is [facility], who just recently bought out [facility] and would like to use [facility] for therapy. Jazmín, MS3 RN CM, made aware. Pt wishes to return home and states has no concerns with going home at time of discharge.?CM?to follow for any further discharge planning/needs.? Pt and Cirpiano voice no further concerns/needs at this time.? WORRELL form explained re: Observation status for treatment of Lt ORIF distal radius.? Explained hospitalization will be paid per? insurance policy for Outpatient billing?and condition will continue to be evaluated for Inpt necessity. Also let pt know that [facility] sends paper in the billing packet with their phone number if questions arise. Discussed Pharmacy section of WORRELL form and self administered medication guideline.? Pt verbalizes understanding and does not have further questions. ?Form signed, copy made and placed in chart, and original given to pt. PLAN:??Home w/HHC and family support. Kady BSN?RN?CM
--- NOTE | 2023-04-11 14:40 | CASEMGMT ---
Addendum entered by Jazmín Rubio 04/11/23 15:33: Spoke with PA, HHC has not been secured yet. Pt is ok to have HHC start after appt with on Friday. HOMERO RIVERA will continue to work on this. HOMERO RIVERA into pt room to make aware that this RN CM will call pt to make aware of which agency accepted. Pt and dtr are agreeable to this. Original Note: TC to Rosy at [facility], she states they are unable to accept pt until late next week per the schedule. HOMERO RIVERA into pt room, pt and dtr made aware that [facility] cannot see pt. Pt chooses [facility] to send referral to. Updated dc bilingual sales assistant.
--- NOTE | 2023-04-11 14:43 | CASEMGMT ---
Discharge Planning HH referrals sent via [facility]Port to [facility] and [facility]. Rose Mai
--- NOTE | 2023-04-11 15:21 | PCM.DC.SUM ---
Providers Date of Admission: 04/10/23 Primary Care Physician: Dr. Yemi Peñaloza MD Reason For Visit: lt orif distal radius, poss application of externa Diagnosis Discharge Diagnosis (1) Post-op pain: Status: Acute Code(s): G89.18 - Other acute postprocedural pain Plan: POD#1 s/p left wrist open reduction internal fixation with application of external fixator, carpal tunnel release -Patient doing well. Pain controlled. Anticipate discharge home today. -Nonweightbearing left wrist. - Pain control -Occupational Therapy ordered for range of motion of the fingers and elbow - DVT PPX -restart home Eliquis, SCDs, early mobilization - Case management - D/C planning. Recommending home health care for dressing changes/wound care. Okay to maintain surgical dressing until follow-up with me on 04/16/2023. Medications at Discharge Home Medications calcium carb-Ca gluc 500 mg calcium-magnesium ox-Mg gluc 250 mg tablet 1 tab PO DAILY 11/22/17 fluticasone propionate 50 mcg/actuation nasal spray,suspension 50 mcg intranasal DAILY 11/22/17 omeprazole 20 mg capsule,delayed release 20 mg PO DAILY 11/22/17 albuterol sulfate 90 mcg/actuation aerosol inhaler (ProAir HFA) 1 inh inhalation ONCE PRN Shortness Of Breath 07/11/21 dexamethasone sodium phosphate 0.1 % eye drops 1 applic otic (ear) BID 07/11/21 levothyroxine 150 mcg tablet 150 mcg PO DAILY 07/11/21 multivitamin 1 tab PO DAILY 07/11/21 diphenhydramine HCl 25 mg tablet (Benadryl Allergy) 25 mg PO DAILY PRN itching 01/08/22 amiodarone 200 mg tablet 200 mg PO DAILY #90 tabs 06/26/22 atorvastatin 10 mg tablet 10 mg PO QDAY #90 tabs 06/26/22 losartan 25 mg tablet (Cozaar) 25 mg PO BID #180 tabs 06/26/22 metoprolol succinate 25 mg tablet,extended release 24 hr 25 mg PO DAILY #90 tabs 09/09/22 apixaban 5 mg tablet (Eliquis) 5 mg PO BID #180 tabs 10/03/22 Nebulizer #1 ea 12/03/22 Nebulizer machine #1 ea 12/03/22 montelukast 10 mg tablet (Singulair) 10 mg PO QPM #90 tabs 12/03/22 albuterol sulfate 2.5 mg/3 mL (0.083 %) solution for nebulization 2.5 mg (3 mL) inhalation Q4H PRN Shortness Of Breath #180 mL 02/10/23 ipratropium bromide 0.02 % solution for inhalation 2.5 ml inhalation Q6H PRN shortness of breath or wheezing #150 mL 02/10/23 budesonide 1 mg/2 mL suspension for nebulization (Pulmicort) 1 mg inhalation BID 04/07/23 hydrochlorothiazide 12.5 mg tablet 25 mg PO DAILY swelling in feet or legs 04/07/23 tramadol 50 mg tablet 50 mg PO Q8H PRN PRN Pain Score 1-10 7 days #28 tabs 04/11/23 Hospital Course Summary of Care Provided Minutes Spent on Discharge: 15 Hospital Course: Patient underwent uncomplicated left distal radius open reduction internal fixation with application of external fixator, carpal tunnel release. She was placed in observation for medical monitoring and early convalescence. An Occupational Therapy consult was placed for mobilization of hand and elbow, assistance with ADLs. Home health care occupational therapy was recommended. We also arranged home health care wound care for pin care and dressing changes. No medical or surgical complications were encountered throughout her stay. Patient was able to be safely discharged to home with home health care on postoperative day #1. Weight / BMI Weight Weight: 139 lb 8.842 oz Body Mass Index (BMI) 22.5 Radiography Diagnostic Testing: Radiology Impression Wrist X-Ray 04/10/23 10:57 IMPRESSION: 4 intraoperative fluoroscopic images of distal left radius fixation. Electronically Signed: Александр Kimball MD at 16:44 EDT , Meaningful Use Info Meaningful Use Diagnoses (Choose all that apply): None applicable Discharge Plan Admission Admit Date/Time: 04/10/23 13:32 Primary Reason for Your Visit: Left wrist fixation Attending Provider: Kingsley James Primary Care Provider: Yemi Peñaloza Instructions Additional Instructions / Restrictions: Nonweightbearing left wrist Range of motion of the fingers and elbow as tolerated Maintain surgical dressing, clean clean dry and intact until seen in the office next week Discharge Orders/Prescriptions Prescriptions: New tramadol 50 mg Tablet 50 mg PO Q8H PRN PRN (Reason: Pain Score 1-10) 7 Days Qty: 28 0RF Continued Ca carb-Ca gluc-Mg ox-Mg gluco 500 mg calcium -250 mg tablet 1 tab PO DAILY omeprazole 20 mg capsule,delayed release(DR/EC) 20 mg PO DAILY fluticasone propionate 50 mcg/actuation spray,suspension 50 mcg INTRANASAL DAILY levothyroxine 150 mcg tablet 150 mcg PO DAILY dexamethasone sodium phosphate 0.1 % drops 1 applic otic (ear) BID multivitamin Tablet 1 tab PO DAILY albuterol sulfate [ProAir HFA] 90 mcg/actuation HFA aerosol inhaler 1 inh inhalation ONCE PRN (Reason: Shortness Of Breath) diphenhydramine HCl [Benadryl Allergy] 25 mg tablet 25 mg PO DAILY PRN (Reason: itching) (DME) Nebulizer See Rx Instructions .ROUTE .MEDSUPPLY Qty: 1 0RF Rx Instructions: As directed (DME) Nebulizer machine See Rx Instructions .ROUTE .MEDSUPPLY Qty: 1 0RF Rx Instructions: As directed montelukast [Singulair] 10 mg tablet 10 mg PO QPM Qty: 90 3RF hydrochlorothiazide 12.5 mg tablet 25 mg PO DAILY budesonide [Pulmicort] 1 mg/2 mL suspension for nebulization 1 mg inhalation BID losartan [Cozaar] 25 mg tablet 25 mg PO BID Qty: 180 3RF amiodarone 200 mg tablet 200 mg PO DAILY Qty: 90 3RF atorvastatin 10 mg tablet 10 mg PO QDAY Qty: 90 3RF metoprolol succinate 25 mg tablet extended release 24 hr 25 mg PO DAILY Qty: 90 3RF Eliquis 5 mg tablet 5 mg PO BID Qty: 180 4RF Label Comments: LAST AM DOSE 04/07/23 AM albuterol sulfate 2.5 mg /3 mL (0.083 %) solution for nebulization 2.5 mg inhalation Q4H PRN (Reason: Shortness Of Breath) Qty: 180 11RF ipratropium bromide 0.02 % solution 2.5 ml inhalation Q6H PRN (Reason: shortness of breath or wheezing) Qty: 150 6RF Referrals / Follow Up: Kingsley James DO [Med Staff - Active Staff] - 04/16/23 Yemi Peñaloza MD [Primary Care Provider] - Disposition Disposition (needs filled in before D/C Order can be placed): Home, Self Care
--- NOTE | 2023-04-16 10:16 | CASEMGMT ---
Addendum entered by Jazmín Rubio 04/16/23 15:57: Received tc back from pt, she is aware of [facility] who accepted and she states they have been in contact with her and appt scheduled. Original Note: [facility] has accepted pt with a SOC of tomorrow. TC to pt to make aware, left vm requesting returned call.
== END 2023-04-11 16:11 | disposition home health service (06) ==
LOC: MS3 17:49
PROVIDERS: Anesthesiology; Admitting Provider Student in an Organized Health Care Education/Training Program; PCP Family Medicine; Referring Provider Student in an Organized Health Care Education/Training Program; Visit Provider Student in an Organized Health Care Education/Training Program
PROC: (CPT 25609; principal; 2023-04-10 10:30)
DX: S52.572A Other intraarticular fracture of lower end of left radius, initial encounter for closed fracture (principal); J44.9 Chronic obstructive pulmonary disease, unspecified; I43 Cardiomyopathy in diseases classified elsewhere; I48.91 Unspecified atrial fibrillation; I47.1 Supraventricular tachycardia; G56.02 Carpal tunnel syndrome, left upper limb; W19.XXXA Unspecified fall, initial encounter; E03.9 Hypothyroidism, unspecified; K21.9 Gastro-esophageal reflux disease without esophagitis; E78.5 Hyperlipidemia, unspecified; Z79.899 Other long term (current) drug therapy; Z79.01 Long term (current) use of anticoagulants; S52.612A Displaced fracture of left ulna styloid process, initial encounter for closed fracture; Z79.890 Hormone replacement therapy; Z86.2 Personal history of diseases of the blood and blood-forming organs and certain disorders involving the immune mechanism; R06.02 Shortness of breath; G89.18 Other acute postprocedural pain
CPT/HCPCS: 25609; 64721; 20690; 01830; 64417; 73100; 76000; 84443; 94640; 94668; 96365; 96366; 97166; 99221; 99252; C1713; J7120; G0378; G0463; J2405

== ENCOUNTER 2023-05-29 07:44 | Day surgery (SDC) | payer MEDICARE, OTHER, SELFPAY ==
--- NOTE | 2023-05-29 08:15 | RAD_ITS ---
STUDY: X-RAY - LEFT WRIST REASON FOR EXAM: Female, 83 years old. Removal of external fixator. TECHNIQUE: 2 digital view(s) of the wrist were obtained. COMPARISON: None. FINDINGS: Frontal and oblique digital images of the left wrist show comminuted fractures of the distal radius with positive ulnar variance. RAD/Wrist 2 Views IMPRESSION: Fracture of the distal radius with ulnar variance on this limited study. Electronically Signed: Moises Herndon MD at 13:17 EDT ,
[2023-05-29] MEDS: Lactated Ringers 1,000 ML 15 ML IV (08:25)
[2023-05-29 08:26] VITALS: BP 151/90; PULSE 65; RESP 18; TEMP 36.3; O2SAT 100; BMI 22.4
[2023-05-29] MEDS: Cefazolin 2 GM in 0.9% Normal Saline 100 ML IV (09:17)
[2023-05-29] MEDS: Lidocaine 1% /Epi 1:100 (20ml) 20 ML Vial (09:36)
[2023-05-29] MEDS: Mupirocin Ointment 22gm Tube 1 APPLIC (09:47)
[2023-05-29 09:49] VITALS: BP 117/55; BP 151/90; PULSE 67; RESP 16; TEMP 36.4; O2SAT 94
[2023-05-29 09:55] VITALS: BP 125/55; BP 151/90; PULSE 66; RESP 16; O2SAT 96
[2023-05-29 10:00] VITALS: BP 125/57; BP 151/90; PULSE 66; RESP 16; O2SAT 95
[2023-05-29 10:05] VITALS: BP 132/60; BP 151/90; PULSE 65; RESP 16; TEMP 36.7; O2SAT 93
[2023-05-29 10:45] VITALS: BP 151/90
--- NOTE | 2023-05-29 12:02 | PCM.OPRPT ---
Report of Operation Date of Procedure: 05/29/23 Description of Surgical Findings:: Preoperative diagnosis: 1. Left distal radius fracture 2. Retained orthopedic external fixator Postoperative diagnosis: 1. Left distal radius fracture 2. Retained orthopedic external fixator Procedure: Removal of external fixator left wrist Surgeon: Kingsley James DO Anesthesiologist: Bharath German MD Estimated blood loss: 2 cc Complications: None apparent IV fluids: 600 cc crystalloid Urine output: None Specimen: None Packing/drains: None Implants: None Intraoperative findings: No gross or fluoroscopic evidence of motion at the fracture site. Surgical indications: This is an 83-year-old female seen in the outpatient setting after a fall on an outstretched left hand approximately 3 months ago. She was seen by my partner and subsequently referred to myself. She was diagnosed with a left distal radius complex intra-articular fracture as well as acute carpal tunnel syndrome. She opted for nonoperative management and adamantly declined any surgical intervention. She was comfortable in a splint for several weeks. I followed up with the patient periodically over the last several weeks. Her pain has been worsening. Paresthesias of been stable in her left hand. I expressed my concern regarding her chronic pain in the left wrist. She underwent left wrist open reduction internal fixation with application of external fixator with myself on 04/10/2023. We also performed open carpal tunnel release at that time. Her postoperative course has been uneventful. Her range of motion is improved in her fingers. Her carpal tunnel syndrome appears to be improving. X-rays demonstrated a stable construct and evidence of healing of distal radius fracture. I recommended removal of external fixator under anesthesia. The risks, benefits, alternatives to procedure reviewed with the patient at length and she agreed to proceed. Risk include but are not limited to bleeding, flexion, loss of life or limb, need for additional surgery, persistent pain, fracture, nonhealing wounds, DVT or PE. Patient expressed understanding these risks and wished proceed with surgery. Description of procedure: Patient was identified in preoperative holding area by name, medical record number, and date of . The operative extremities marked. All questions answered to patient's satisfaction. At time of her procedure, patient brought to the operative suite positioned supine a standard operating table. MAC anesthesia was induced. I then cleansed the skin with rubbing alcohol and performed a tumescent field blocks at the pin sites with 20 cc total 1% lidocaine with epinephrine 1: 100,000. We spun the bed 90 degrees. We performed timeout with all parties in attendance in agreement the side, site, operation be performed. 2 g Ancef was administered IV prior to surgical start time by anesthesia staff. No concerns were voiced and we elected to proceed with surgery. I then deconstructed the external fixator and disengaged it from the intraosseous pins. We then prepped and draped the left upper extremity in normal, sterile orthopedic fashion utilizing Betadine prep. Pins were removed with pin compactor driver. Pin sites were debrided with a curette and then copiously irrigated with normal saline solution. Fluoroscopy was brought in to examine the fracture. Significant malunion was noted due to the complex fracture and bone loss. There was no gross motion of the fracture site with manual stressing. Wounds were dressed with mupirocin ointment, Adaptic and 4 x 4's. A well-padded volar short arm fiberglass splint was applied. Patient tolerated procedure well without apparent complication. She was safely awoken from anesthesia and transferred to her gurney and subsequently to PACU in stable condition. Postoperative plan: Patient has tramadol at home as needed for pain. She was encouraged to take Tylenol. Continue anticoagulant. Follow-up with 2 weeks with x-rays out of splint. If no significant change from intraoperative films, likely transition to wrist brace versus supportive compression sleeve. Nonweightbearing operative extremity. Ice and elevation encouraged. Maintain splint until follow-up.
== END 2023-05-29 11:10 | disposition home or self-care (01) ==
LOC: SDC 07:46 → AC 07:47
PROVIDERS: PCP Family Medicine; Referring Provider Student in an Organized Health Care Education/Training Program; Visit Provider Student in an Organized Health Care Education/Training Program
PROC: (CPT 20694; principal; 2023-05-29 09:00)
DX: S52.572P Other intraarticular fracture of lower end of left radius, subsequent encounter for closed fracture with malunion (principal); G21.9 Secondary parkinsonism, unspecified; I27.29 Other secondary pulmonary hypertension; I48.91 Unspecified atrial fibrillation; W19.XXXD Unspecified fall, subsequent encounter; G56.02 Carpal tunnel syndrome, left upper limb; J45.909 Unspecified asthma, uncomplicated; E78.00 Pure hypercholesterolemia, unspecified; E03.9 Hypothyroidism, unspecified; G89.29 Other chronic pain; Z79.01 Long term (current) use of anticoagulants; Z79.890 Hormone replacement therapy; Z79.899 Other long term (current) drug therapy
CPT/HCPCS: 20694; 01820; 73100; 76000; J7120; J2405

== ENCOUNTER → 2023-12-08 | Outpatient (CLI) | payer MEDICARE, OTHER, SELFPAY | END | disposition home or self-care (01) | LOC: LABSPEC 11:11 | PROVIDERS: PCP Family Medicine; Referring Provider Nurse Practitioner Acute Care; Visit Provider Nurse Practitioner Acute Care | DX: J45.50 Severe persistent asthma, uncomplicated (principal) | CPT/HCPCS: 87070; 87077; 87186; 87205 ==

== ENCOUNTER → 2024-06-08 | Outpatient (CLI) | payer MEDICARE, OTHER, SELFPAY ==
[2024-06-08 13:02] LABS: Absolute Lymphocyte Count 0.97 X10^3/uL (0.83-4.51); Absolute Neutrophil Count 4.2 X10^3/uL (2.0-7.7); Basophil# 0.09 X10^3/uL; Basophil% 1.4 % (0-1); Eosinophil# 0.37 X10^3/uL; Hematocrit 27.2 % (37-47); Hemoglobin 8.9 g/dL (12.0-15.0); Lymphocyte # 0.97 X10^3/ul (0.83-4.51); Lymphocyte % 15.6 % (19-41); Mean Corp Hgb Conc 32.7 g/dL (32-36); Mean Corpuscular Hgb 28.3 pg (27.0-32.0); Mean Corpuscular Volume 86.6 fL (81-99); Mean Platelet Vol. 9.2 fl (6.2-12.0); Monocyte# 0.58 X10^3/uL; Monocyte% 9.3 % (0-10); NRBC Flagged by Analyzer 0 % (0-5); Neutrophil # 4.18 X10^3/uL (2.7-7.7); Neutrophil % 67.4 % (47-70); Platelet Count 323 K/mm3 (150-450); RBC Distribution Width CV 14.6 % (11.6-14.6); RBC Distribution Width SD 46.6 fl (35.1-43.9); Red Blood Count 3.14 M/mm3 (4.2-5.4); White Blood Count 6.2 K/mm3 (4.4-11.0)
[2024-06-12 15:08] LABS: Immunoglobulin E 174 IU/mL (6-495)
== END | disposition home or self-care (01) ==
LOC: PAVLAB 12:23
PROVIDERS: PCP Family Medicine; Referring Provider Internal Medicine Critical Care Medicine; Visit Provider Internal Medicine Critical Care Medicine
DX: J45.50 Severe persistent asthma, uncomplicated (principal)
CPT/HCPCS: 36415; 82785; 85025

== ENCOUNTER 2024-07-16 09:30 | Outpatient (CLI) | payer MEDICARE, OTHER, SELFPAY ==
[2024-07-16 09:57] VITALS: BP 134/50; PULSE 58; RESP 16; TEMP 36.4; O2SAT 96; BMI 21.3
[2024-07-16] MEDS: Mepolizumab 100 MG VIAL SC (10:26)
== END 2024-07-16 23:59 | disposition home or self-care (01) ==
LOC: MEDOUTP 09:31
PROVIDERS: PCP Family Medicine; Referring Provider Nurse Practitioner Acute Care; Visit Provider Nurse Practitioner Acute Care
DX: J45.50 Severe persistent asthma, uncomplicated (principal)
CPT/HCPCS: 96372; J2182

== ENCOUNTER 2024-08-13 11:09 | Outpatient (CLI) | payer MEDICARE, OTHER, SELFPAY ==
[2024-08-13 11:27] VITALS: BP 152/62; PULSE 59; RESP 16; TEMP 36.1; O2SAT 99; BMI 21.3
[2024-08-13] MEDS: Mepolizumab 100 MG VIAL SC (12:15)
== END 2024-08-13 23:59 | disposition home or self-care (01) ==
LOC: MEDOUTP 11:10
PROVIDERS: PCP Family Medicine; Referring Provider Nurse Practitioner Acute Care; Visit Provider Nurse Practitioner Acute Care
DX: J45.50 Severe persistent asthma, uncomplicated (principal)
CPT/HCPCS: 96372; J2182

== ENCOUNTER → 2024-08-13 | Outpatient (CLI) | payer MEDICARE, OTHER, SELFPAY ==
[2024-08-13 13:56] LABS: Hematocrit 30.3 % (37-47); Hemoglobin 9.8 g/dL (12.0-15.0); Mean Corp Hgb Conc 32.3 g/dL (32-36); Mean Corpuscular Hgb 28.3 pg (27.0-32.0); Mean Corpuscular Volume 87.6 fL (81-99); Mean Platelet Vol. 9.6 fl (6.2-12.0); Platelet Count 310 K/mm3 (150-450); RBC Distribution Width CV 18.7 % (11.6-14.6); RBC Distribution Width SD 59.8 fl (35.1-43.9); Red Blood Count 3.46 M/mm3 (4.2-5.4)
[2024-08-13 14:27] LABS: Cholesterol 178 mg/dL (200); High Density Lipoprotein 79 mg/dL; Triglycerides 72 mg/dL; Very Low Density Lipoprotein 14 mg/dL (5-40)
== END | disposition home or self-care (01) ==
LOC: LAB 13:01
PROVIDERS: PCP Family Medicine; Referring Provider Internal Medicine Cardiovascular Disease; Visit Provider Internal Medicine Cardiovascular Disease
DX: D64.9 Anemia, unspecified (principal); E78.5 Hyperlipidemia, unspecified
CPT/HCPCS: 36415; 80061; 85027

== ENCOUNTER 2024-09-09 09:38 | Outpatient (CLI) | payer MEDICARE, OTHER, SELFPAY ==
[2024-09-09 09:51] VITALS: BP 161/75; PULSE 56; RESP 16; TEMP 35.8; O2SAT 99; BMI 21.4
[2024-09-09] MEDS: Mepolizumab 100 MG VIAL SC (10:12)
== END 2024-09-09 23:59 | disposition home or self-care (01) ==
LOC: MEDOUTP 09:38
PROVIDERS: PCP Family Medicine; Referring Provider Nurse Practitioner Acute Care; Visit Provider Nurse Practitioner Acute Care
DX: J45.50 Severe persistent asthma, uncomplicated (principal)
CPT/HCPCS: 96372; J2182

== ENCOUNTER 2024-10-07 11:11 | Outpatient (CLI) | payer MEDICARE, OTHER, SELFPAY ==
[2024-10-07 11:26] VITALS: BP 140/56; PULSE 54; RESP 16; TEMP 36.5; O2SAT 100; BMI 21.7
[2024-10-07] MEDS: Mepolizumab 100 MG VIAL SC (11:50)
== END 2024-10-07 23:59 | disposition home or self-care (01) ==
LOC: MEDOUTP 11:11
PROVIDERS: PCP Family Medicine; Referring Provider Nurse Practitioner Acute Care; Visit Provider Nurse Practitioner Acute Care
DX: J45.50 Severe persistent asthma, uncomplicated (principal)
CPT/HCPCS: 96372; J2182

== ENCOUNTER 2024-10-20 10:14 | Inpatient (IN) | payer MEDICARE, OTHER, SELFPAY ==
[2024-10-20 10:16] VITALS: BP 79/46; PULSE 66; RESP 16; TEMP 36.1; O2SAT 97
[2024-10-20 10:59] VITALS: BMI 21.2
[2024-10-20 11:10] LABS: Absolute Lymphocyte Count 0.96 X10^3/uL (0.83-4.51); Absolute Neutrophil Count 6.9 X10^3/uL (2.0-7.7); Basophil# 0.05 X10^3/uL; Basophil% 0.6 % (0-1); Eosinophil# 0.01 X10^3/uL; Eosinophils% 0.1 % (0-5); Hematocrit 31.8 % (37-47); Hemoglobin 10.7 g/dL (12.0-15.0); Lymphocyte # 0.96 X10^3/ul (0.83-4.51); Lymphocyte % 10.8 % (19-41); Mean Corp Hgb Conc 33.6 g/dL (32-36); Mean Corpuscular Hgb 29.6 pg (27.0-32.0); Mean Corpuscular Volume 88.1 fL (81-99); Mean Platelet Vol. 9.6 fl (6.2-12.0); Monocyte# 0.98 X10^3/uL; NRBC Flagged by Analyzer 0 % (0-5); Neutrophil # 6.86 X10^3/uL (2.7-7.7); Neutrophil % 77.1 % (47-70); Platelet Count 351 K/mm3 (150-450); RBC Distribution Width CV 16.5 % (11.6-14.6); RBC Distribution Width SD 54.1 fl (35.1-43.9); Red Blood Count 3.61 M/mm3 (4.2-5.4); White Blood Count 8.9 K/mm3 (4.4-11.0)
[2024-10-20 11:38] LABS: Lactic Acid 1.3 mmol/L (0.4-1.9)
[2024-10-20] MEDS: 0.9% Normal Saline (1000mL) 1,000 ML 999 ML IV (11:39)
[2024-10-20 11:46] LABS: Bacteria 0 SEEN /hpf (None Seen); Mucous, Urine 0 SEEN /hpf (<or=2+); Red Blood Cells-Urine 0 SEEN /hpf (0-5)
[2024-10-20 11:49] LABS: ALB/GLOB Ratio 0.9 RATIO (0.9-2.4); AST(SGOT) 165 U/L (15-37); Alanine Aminotransfer ALT/SGPT 248 U/L (13-56); Alkaline Phosphatase 97 U/L (45-117); Anion Gap 7 (5-15); BUN 34 mg/dL (7-18); BUN/Creat Ratio 22.1 RATIO (10-20); Calcium,Total 8.4 mg/dL (8.5-10.1); Chloride 98 mmol/L (98-107); Creatinine, Serum 1.54 mg/dL (0.55-1.02); EST Glomerular Filtration Rate 34 mL/min (>60); Est Glom Filt Rate - Afr Amer 41 mL/min (>60); Estimated Creatinine Clearance 25.91 ml/min; Globulin 3.2 g/dL (2.2-4.2); Glucose 93 mg/dL (74-106); Lipase 49 U/L (13-75); Potassium 3.9 mmol/L (3.5-5.1); Protein, Total 6.2 g/dL (6.4-8.2); Sodium Level 128 mmol/L (136-145); Troponin-I HS 22 pg/mL (3.0-54.0)
[2024-10-20 11:51] LABS: Color, Urine Yellow (Yellow); Glucose, Dipstick Normal (Normal); Ketone-Dipstick Negative (Negative); Leukocyte Esterase-Dipstick 25 /ul (Negative); Nitrite-Dipstick Negative (Negative); Occult Blood-Urine Negative /ul (Negative); Protein-Dipstick 30 mg/dl (Negative); Specific Gravity, Urine 1.015 (1.002-1.030); Urine Clarity Clear (Clear); Urine Urobilinogen 1 mg/dl (Normal)
[2024-10-20 11:52] LABS: Urine Bilirubin Dipstick 1 mg/dL (Negative)
[2024-10-20 12:00] LABS: Squamous Epithelial Cells - UA 0-5 SEEN /hpf (5-10); White Blood Cells 0-5 SEEN /hpf (0-5)
[2024-10-20 12:01] LABS: Hyaline Cast 0-5 SEEN /lpf (0-5)
[2024-10-20 12:14] VITALS: BP 102/57; PULSE 59; RESP 14; O2SAT 98
[2024-10-20 12:43] VITALS: BP 102/57; PULSE 59; RESP 14; TEMP 36.6; O2SAT 98
[2024-10-20 14:18] VITALS: O2SAT 97
[2024-10-20] MEDS: 0.9% Normal Saline (1000mL) 1,000 ML 125 ML IV (15:59)
[2024-10-20] MEDS: Atorvastatin Calcium 10 MG Tablet PO (22:55)
[2024-10-20] MEDS: APIXABAN 2.5 MG TABLET (WCH) PO (22:55)
[2024-10-20 23:06] VITALS: BP 118/72; PULSE 68; RESP 18; TEMP 37.1; O2SAT 97
[2024-10-21] MEDS: 0.9% Normal Saline (1000mL) 1,000 ML 125 ML IV ×2 (00:13→08:17)
[2024-10-21] MEDS: Acetaminophen 325 MG Tablet 650 MG PO (00:54)
[2024-10-21 04:23] VITALS: BP 136/76; PULSE 78; RESP 18; TEMP 36.9; O2SAT 98
[2024-10-21 05:34] VITALS: BMI 21.8
[2024-10-21 06:08] LABS: Absolute Lymphocyte Count 0.92 X10^3/uL (0.83-4.51); Absolute Neutrophil Count 4.8 X10^3/uL (2.0-7.7); Basophil# 0.03 X10^3/uL; Basophil% 0.5 % (0-1); Eosinophil# 0.02 X10^3/uL; Eosinophils% 0.3 % (0-5); Hematocrit 27.4 % (37-47); Hemoglobin 9.1 g/dL (12.0-15.0); Lymphocyte # 0.92 X10^3/ul (0.83-4.51); Mean Corp Hgb Conc 33.2 g/dL (32-36); Mean Corpuscular Hgb 29.4 pg (27.0-32.0); Mean Corpuscular Volume 88.4 fL (81-99); Monocyte# 0.79 X10^3/uL; NRBC Flagged by Analyzer 0 % (0-5); Neutrophil # 4.77 X10^3/uL (2.7-7.7); Neutrophil % 72.6 % (47-70); Platelet Count 301 K/mm3 (150-450); RBC Distribution Width CV 16.8 % (11.6-14.6); White Blood Count 6.6 K/mm3 (4.4-11.0)
[2024-10-21] MEDS: Levothyroxine 150 MCG Tablet PO (06:39)
[2024-10-21 06:55] LABS: Anion Gap 6 (5-15); BUN 23 mg/dL (7-18); BUN/Creat Ratio 25.4 RATIO (10-20); Chloride 105 mmol/L (98-107); EST Glomerular Filtration Rate 63 mL/min (>60); Est Glom Filt Rate - Afr Amer 76 mL/min (>60); Estimated Creatinine Clearance 44.34 ml/min; Glucose 95 mg/dL (74-106); Magnesium 1.9 mg/dL (1.6-2.6); Phosphorus 2.3 mg/dL (2.5-4.9); Potassium 3.9 mmol/L (3.5-5.1); Sodium Level 133 mmol/L (136-145)
[2024-10-21 08:21] VITALS: BP 101/63; PULSE 54; RESP 16; TEMP 36.7; O2SAT 97
[2024-10-21 09:08] VITALS: PULSE 66
[2024-10-21] MEDS: Ferrous Sulfate 325 MG Tablet PO (09:08)
[2024-10-21] MEDS: Metoprolol(XL)Succ 25 MG Tablet PO (09:08)
[2024-10-21] MEDS: Amiodarone 200 MG Tablet PO (09:08)
[2024-10-21] MEDS: Montelukast 10 MG Tablet PO (09:08)
[2024-10-21] MEDS: Fluticasone 0.05% 1 SPRAY NASAL.SRY NASAL (09:09)
[2024-10-21] MEDS: Pantoprazole Sodium 20 MG Tablet PO (09:09)
[2024-10-21] MEDS: APIXABAN 2.5 MG TABLET (WCH) PO (09:12)
[2024-10-21 11:59] VITALS: BP 101/63; PULSE 66; RESP 16; TEMP 36.7; O2SAT 97
== END 2024-10-21 13:09 | disposition home or self-care (01) | DRG 683 ==
LOC: ED 12:43 → MS3 12:57
PROVIDERS: Admitting Provider Internal Medicine; Emergency Provider Surgery; PCP Family Medicine; Visit Provider Internal Medicine
DX: N17.9 Acute kidney failure, unspecified (principal); E87.1 Hypo-osmolality and hyponatremia; I50.32 Chronic diastolic (congestive) heart failure; D63.8 Anemia in other chronic diseases classified elsewhere; I11.0 Hypertensive heart disease with heart failure; I25.5 Ischemic cardiomyopathy; I48.0 Paroxysmal atrial fibrillation; E86.0 Dehydration; J45.50 Severe persistent asthma, uncomplicated; E03.9 Hypothyroidism, unspecified; E86.1 Hypovolemia; K21.9 Gastro-esophageal reflux disease without esophagitis; J30.9 Allergic rhinitis, unspecified; E78.00 Pure hypercholesterolemia, unspecified; J44.9 Chronic obstructive pulmonary disease, unspecified; I95.9 Hypotension, unspecified; Z79.01 Long term (current) use of anticoagulants; Z79.890 Hormone replacement therapy; Z79.899 Other long term (current) drug therapy
CPT/HCPCS: 36415; 80048; 80053; 81001; 83605; 83690; 83735; 84100; 84484; 85025; 93005; 94668; 99284; J7030; A4216

== ENCOUNTER 2024-11-04 10:09 | Outpatient (CLI) | payer MEDICARE, OTHER, SELFPAY ==
[2024-11-04 10:21] VITALS: BP 158/61; PULSE 71; RESP 16; TEMP 36.4; O2SAT 99; BMI 21.6
[2024-11-04] MEDS: Mepolizumab 100 MG VIAL SC (10:52)
== END 2024-11-04 23:59 | disposition home or self-care (01) ==
LOC: MEDOUTP 10:09
PROVIDERS: PCP Family Medicine; Referring Provider Nurse Practitioner Acute Care; Visit Provider Nurse Practitioner Acute Care
DX: J45.50 Severe persistent asthma, uncomplicated (principal)
CPT/HCPCS: 96372; J2182

== ENCOUNTER 2024-12-03 08:26 | Outpatient (CLI) | payer MEDICARE, OTHER, SELFPAY ==
[2024-12-03 08:33] VITALS: BP 140/52; PULSE 52; RESP 16; TEMP 36.1; O2SAT 98
[2024-12-03] MEDS: Mepolizumab 100 MG VIAL SC (09:07)
== END 2024-12-03 23:59 | disposition home or self-care (01) ==
LOC: MEDOUTP 08:28
PROVIDERS: PCP Family Medicine; Referring Provider Nurse Practitioner Acute Care; Visit Provider Nurse Practitioner Acute Care
DX: J45.50 Severe persistent asthma, uncomplicated (principal)
CPT/HCPCS: 96372; J2182

== ENCOUNTER 2024-12-31 09:47 | Outpatient (CLI) | payer MEDICARE, OTHER, SELFPAY ==
[2024-12-31 10:06] VITALS: BP 146/69; PULSE 71; RESP 16; TEMP 36.4; O2SAT 95; BMI 22.1
[2024-12-31] MEDS: Mepolizumab 100 MG VIAL SC (10:26)
== END 2024-12-31 23:59 | disposition home or self-care (01) ==
LOC: MEDOUTP 09:47
PROVIDERS: PCP Family Medicine; Referring Provider Nurse Practitioner Acute Care; Visit Provider Nurse Practitioner Acute Care
DX: J45.50 Severe persistent asthma, uncomplicated (principal)
CPT/HCPCS: 96372; J2182

== ENCOUNTER 2025-01-28 10:01 | Outpatient (CLI) | payer MEDICARE, OTHER, SELFPAY ==
[2025-01-28 10:14] VITALS: BP 154/72; PULSE 72; RESP 16; TEMP 36.4; O2SAT 99
[2025-01-28] MEDS: Mepolizumab 100 MG VIAL SC (10:43)
== END 2025-01-28 23:59 | disposition home or self-care (01) ==
LOC: MEDOUTP 10:01
PROVIDERS: PCP Family Medicine; Referring Provider Nurse Practitioner Acute Care; Visit Provider Nurse Practitioner Acute Care
DX: J45.50 Severe persistent asthma, uncomplicated (principal)
CPT/HCPCS: 96372; J2182

== ENCOUNTER → 2025-01-28 | Outpatient (CLI) | payer MEDICARE, OTHER, SELFPAY ==
[2025-01-28 10:30] LABS: Absolute Lymphocyte Count 0.78 X10^3/uL (0.83-4.51); Absolute Neutrophil Count 2.9 X10^3/uL (2.0-7.7); Basophil# 0.04 X10^3/uL; Basophil% 0.9 % (0-1); Eosinophil# 0.01 X10^3/uL; Eosinophils% 0.2 % (0-5); Hematocrit 31.3 % (37-47); Hemoglobin 10.6 g/dL (12.0-15.0); Lymphocyte # 0.78 X10^3/ul (0.83-4.51); Mean Corp Hgb Conc 33.9 g/dL (32-36); Mean Corpuscular Volume 94.6 fL (81-99); Mean Platelet Vol. 9.1 fl (6.2-12.0); Monocyte# 0.88 X10^3/uL; Monocyte% 19.2 % (0-10); NRBC Flagged by Analyzer 0 % (0-5); Neutrophil # 2.87 X10^3/uL (2.7-7.7); Neutrophil % 62.5 % (47-70); Platelet Count 383 K/mm3 (150-450); RBC Distribution Width CV 13.8 % (11.6-14.6); RBC Distribution Width SD 47.8 fl (35.1-43.9); Red Blood Count 3.31 M/mm3 (4.2-5.4); White Blood Count 4.6 K/mm3 (4.4-11.0)
[2025-01-28 11:22] LABS: AST(SGOT) 31 U/L (<=31); Alanine Aminotransfer ALT/SGPT 20 U/L (<=34); Alkaline Phosphatase 122 U/L (35-104); Anion Gap 10 (5-15); BUN 15 mg/dL (4-19); Bilirubin, Direct 0.16 mg/dL (0.00-0.30); Calcium,Total 9.2 mg/dL (7.6-11.0); Chloride 90 mmol/L (98-108); Creatinine, Serum 0.77 mg/dL (0.70-1.20); EST Glomerular Filtration Rate 77 (>60); Globulin 2.5 g/dL (2.2-4.2); Glucose 81 mg/dL (70-99); Protein, Total 6.5 g/dL (5.9-8.4); Sodium Level 127 mmol/L (133-145); Total Bilirubin 0.24 mg/dL (0.00-1.30)
== END | disposition home or self-care (01) ==
LOC: LAB 09:36
PROVIDERS: PCP Family Medicine; Referring Provider Nurse Practitioner Family; Visit Provider Nurse Practitioner Family
DX: I48.0 Paroxysmal atrial fibrillation (principal); E78.5 Hyperlipidemia, unspecified; L29.9 Pruritus, unspecified; I34.0 Nonrheumatic mitral (valve) insufficiency; Z79.899 Other long term (current) drug therapy
CPT/HCPCS: 36415; 80048; 80076; 84443; 85025

== ENCOUNTER → 2025-02-15 | Outpatient (CLI) | payer MEDICARE, OTHER, SELFPAY ==
[2025-02-15 12:48] LABS: Anion Gap 9 (5-15); BUN 12 mg/dL (4-19); BUN/Creat Ratio 15.3 RATIO (10-20); Carbon Dioxide 26.7 mmol/L (21.0-32.0); Chloride 93 mmol/L (98-108); Creatinine, Serum 0.79 mg/dL (0.70-1.20); EST Glomerular Filtration Rate 75 (>60); Glucose 95 mg/dL (70-99); Potassium 4.2 mmol/L (3.3-5.1); Sodium Level 129 mmol/L (133-145)
== END | disposition home or self-care (01) ==
LOC: LAB 09:53
PROVIDERS: PCP Family Medicine; Referring Provider Nurse Practitioner Family; Visit Provider Nurse Practitioner Family
DX: E87.1 Hypo-osmolality and hyponatremia (principal)
CPT/HCPCS: 36415; 80048

== ENCOUNTER 2025-02-25 09:17 | Outpatient (CLI) | payer MEDICARE, OTHER, SELFPAY ==
[2025-02-25 09:30] VITALS: BP 155/66; PULSE 78; RESP 16; TEMP 35.9; O2SAT 97; BMI 22.1
[2025-02-25] MEDS: Mepolizumab 100 MG VIAL SC (10:05)
== END 2025-02-25 23:59 | disposition home or self-care (01) ==
LOC: MEDOUTP 09:17
PROVIDERS: PCP Family Medicine; Referring Provider Nurse Practitioner Acute Care; Visit Provider Nurse Practitioner Acute Care
DX: J45.50 Severe persistent asthma, uncomplicated (principal)
CPT/HCPCS: 96372; J2182

== ENCOUNTER → 2025-03-08 | Outpatient (CLI) | payer MEDICARE, OTHER, SELFPAY ==
--- NOTE | 2025-03-08 11:18 | RAD_ITS ---
EXAM: XR Abdomen, 1 View CLINICAL INDICATION: R/O CONSTIPATION TECHNIQUE: Frontal supine view of the abdomen/pelvis. COMPARISON: No relevant prior studies available. FINDINGS: GASTROINTESTINAL TRACT: Fecal retention in the colon consistent with constipation. No dilation. BONES/JOINTS: Unremarkable. No acute fracture. RAD/Abdomen Single View IMPRESSION: Fecal retention in the colon consistent with constipation. Reading Location: [facility]
== END | disposition home or self-care (01) ==
LOC: RAD 11:05
PROVIDERS: PCP Family Medicine; Referring Provider Nurse Practitioner Acute Care; Visit Provider Nurse Practitioner Acute Care
DX: R19.4 Change in bowel habit (principal)
CPT/HCPCS: 74018

== ENCOUNTER 2025-03-25 09:14 | Outpatient (CLI) | payer MEDICARE, OTHER, SELFPAY ==
[2025-03-25 09:26] VITALS: BP 139/72; PULSE 70; RESP 16; TEMP 36.5; O2SAT 97; BMI 21.9
[2025-03-25] MEDS: Mepolizumab 100 MG VIAL SC (09:50)
== END 2025-03-25 23:59 | disposition home or self-care (01) ==
LOC: MEDOUTP 09:14
PROVIDERS: PCP Family Medicine; Referring Provider Nurse Practitioner Acute Care; Visit Provider Nurse Practitioner Acute Care
DX: J45.50 Severe persistent asthma, uncomplicated (principal)
CPT/HCPCS: 96372; J2182

== ENCOUNTER → 2025-03-25 | Outpatient (CLI) | payer MEDICARE, OTHER, SELFPAY ==
[2025-03-25 12:04] LABS: Absolute Lymphocyte Count 1.32 X10^3/uL (0.83-4.51); Absolute Neutrophil Count 4.6 X10^3/uL (2.0-7.7); Basophil# 0.05 X10^3/uL; Basophil% 0.7 % (0-1); Eosinophil# 0.02 X10^3/uL; Eosinophils% 0.3 % (0-5); Hemoglobin 11.2 g/dL (12.0-15.0); Lymphocyte # 1.32 X10^3/ul (0.83-4.51); Lymphocyte % 18.6 % (19-41); Mean Corp Hgb Conc 32.9 g/dL (32-36); Mean Corpuscular Hgb 32.4 pg (27.0-32.0); Mean Corpuscular Volume 98.3 fL (81-99); Mean Platelet Vol. 9.3 fl (6.2-12.0); Monocyte# 1.12 X10^3/uL; Monocyte% 15.8 % (0-10); NRBC Flagged by Analyzer 0 % (0-5); Neutrophil # 4.58 X10^3/uL (2.7-7.7); Neutrophil % 64.3 % (47-70); Platelet Count 377 K/mm3 (150-450); RBC Distribution Width CV 14.4 % (11.6-14.6); RBC Distribution Width SD 51.8 fl (35.1-43.9); Red Blood Count 3.46 M/mm3 (4.2-5.4); White Blood Count 7.1 K/mm3 (4.4-11.0)
[2025-03-25 13:02] LABS: ALB/GLOB Ratio 1.5 RATIO (0.9-2.4); AST(SGOT) 24 U/L (<=31); Alanine Aminotransfer ALT/SGPT 13 U/L (<=34); Albumin, Serum 4.2 g/dL (3.4-4.8); Alkaline Phosphatase 106 U/L (35-104); Anion Gap 11 (5-15); BUN 18 mg/dL (4-19); BUN/Creat Ratio 22.5 RATIO (10-20); Calcium,Total 9.3 mg/dL (7.6-11.0); Carbon Dioxide 24.5 mmol/L (21.0-32.0); Chloride 97 mmol/L (98-108); Creatinine, Serum 0.79 mg/dL (0.70-1.20); EST Glomerular Filtration Rate 74 (>60); Globulin 2.9 g/dL (2.2-4.2); Glucose 100 mg/dL (70-99); Potassium 4.4 mmol/L (3.3-5.1); Protein, Total 7.1 g/dL (5.9-8.4); Sodium Level 132 mmol/L (133-145); Total Bilirubin 0.49 mg/dL (0.00-1.30)
[2025-03-25 13:06] LABS: CRP < 3.00 mg/L (0.0-3.0)
== END | disposition home or self-care (01) ==
LOC: LAB 11:24
PROVIDERS: PCP Family Medicine; Referring Provider Nurse Practitioner Acute Care; Visit Provider Nurse Practitioner Acute Care
DX: D64.9 Anemia, unspecified (principal); K59.00 Constipation, unspecified; R10.9 Unspecified abdominal pain
CPT/HCPCS: 36415; 80053; 85025; 86140

== ENCOUNTER → 2025-03-29 | Outpatient (CLI) | payer MEDICARE, OTHER, SELFPAY ==
--- NOTE | 2025-03-29 13:58 | CT_ITS ---
PROCEDURE: ABDOMEN/PELVIS WITH CONTRAST 03/29/2025 REASON FOR EXAM: CHANGE IN BOWEL HABITS TECHNIQUE: Abdomen and pelvis CT with intravenous contrast. Coronal and Sagittal reconstruction series were provided. PATIENT PREPARATION: Per protocol ORAL CONTRAST TYPE: Given. CONTRAST: Isovue-300 VOLUME: 100 mL One or more dose reduction techniques were used (e.g., Automated exposure control, adjustment of the mA and/or kV according to patient size, use of iterative reconstruction technique. RADIATION DOSE SUMMARY: CTDlvol: 6.07 mGy DLP: 298.77 mGycm COMPARISON: None1 FINDINGS: Lung bases: Mild increased linear markings at the lung bases suggestive of atelectasis and/or scarring. Coronary artery calcification. There is enlargement of the left atrium. Calcification of the mitral valve annulus. Liver: Normal size. No mass. Gallbladder: Questionable sludge or small gallstones along the dependent portion of the gallbladder lumen. Spleen: Normal size. Pancreas: Diffuse fatty atrophy. Adrenals: Unremarkable Kidneys: Normal renal sizes. No hydronephrosis. Bladder: Unremarkable Reproductive Organs: Calcified fibroid uterus. Bowel: Moderate amount of fecal material is seen in the colon. Small hiatal hernia. Appendix: The appendix is not identified. There is no inflammatory process identified in the right lower quadrant to suggest appendicitis. Lymph nodes: Unremarkable. Vasculature: Mild diffuse atherosclerotic calcifications are noted. Peritoneum / Retroperitoneum: Unremarkable Bones: Degenerative changes of the spine. Dextroscoliosis. CT/Abdomen/Pelvis WITH Contrast IMPRESSION: Questionable sludge or small gallstones along the dependent portion of the gall bladder lumen. Dextroscoliosis of the lumbar spine. Calcified fibroid uterus. Reading Location: [id number]
== END | disposition home or self-care (01) ==
LOC: CT 13:57
PROVIDERS: PCP Family Medicine; Referring Provider Nurse Practitioner Acute Care; Visit Provider Nurse Practitioner Acute Care
DX: K59.00 Constipation, unspecified (principal); R10.9 Unspecified abdominal pain
CPT/HCPCS: 74177; Q9967; A4216

== ENCOUNTER 2025-04-22 09:17 | Outpatient (CLI) | payer MEDICARE, OTHER, SELFPAY ==
[2025-04-22 09:48] VITALS: BP 137/56; PULSE 72; RESP 16; TEMP 35.8; O2SAT 97; BMI 22.2
[2025-04-22] MEDS: Mepolizumab 100 MG VIAL SC (10:15)
== END 2025-04-22 23:59 | disposition home or self-care (01) ==
LOC: MEDOUTP 09:18
PROVIDERS: PCP Family Medicine; Referring Provider Nurse Practitioner Acute Care; Visit Provider Nurse Practitioner Acute Care
DX: J45.50 Severe persistent asthma, uncomplicated (principal)
CPT/HCPCS: 96372; J2182

== ENCOUNTER 2025-05-23 08:43 | Outpatient (CLI) | payer MEDICARE, OTHER, SELFPAY ==
[2025-05-23 08:52] VITALS: BP 142/66; PULSE 66; RESP 16; TEMP 36.1; O2SAT 100
== END 2025-05-23 23:59 | disposition home or self-care (01) ==
LOC: MEDOUTP 08:43
PROVIDERS: PCP Family Medicine; Referring Provider Nurse Practitioner Acute Care; Visit Provider Nurse Practitioner Acute Care
DX: J45.50 Severe persistent asthma, uncomplicated (principal)
CPT/HCPCS: 96372; J2182

== ENCOUNTER 2025-06-20 09:06 | Outpatient (CLI) | payer MEDICARE, OTHER, SELFPAY ==
[2025-06-20 09:11] VITALS: BP 135/86; PULSE 80; RESP 16; TEMP 35.9; O2SAT 98
== END 2025-06-20 23:59 | disposition home or self-care (01) ==
LOC: MEDOUTP 09:07
PROVIDERS: PCP Family Medicine; Referring Provider Nurse Practitioner Acute Care; Visit Provider Nurse Practitioner Acute Care
DX: J45.50 Severe persistent asthma, uncomplicated (principal)
CPT/HCPCS: 96372; J2182

== ENCOUNTER 2025-07-21 10:47 | Outpatient (CLI) | payer MEDICARE, OTHER, SELFPAY ==
[2025-07-21 10:57] VITALS: BP 153/64; PULSE 89; RESP 16; TEMP 36.4; O2SAT 98; BMI 22.6
== END 2025-07-21 23:59 | disposition home or self-care (01) ==
LOC: MEDOUTP 10:48
PROVIDERS: PCP Family Medicine; Referring Provider Nurse Practitioner Acute Care; Visit Provider Nurse Practitioner Acute Care
DX: J45.50 Severe persistent asthma, uncomplicated (principal)
CPT/HCPCS: 96372; J2182

== ENCOUNTER → 2025-07-21 | Outpatient (CLI) | payer MEDICARE, OTHER, SELFPAY ==
--- NOTE | 2025-07-21 09:11 | US_ITS ---
PROCEDURE: BREAST LIMITED UNILATERAL 07/21/2025 REASON FOR EXAM: F, Age 85 y/o , PAIN Upper breast pain. COMPARISON: Prior mammogram done earlier in the day.. TECHNIQUE: Procedure Code: USBRSTLIMIT Modality: US Procedure: BREAST LIMITED UNILATERAL. The upper inner quadrant of the right breast was examined with ultrasound. FINDINGS: There is a 1.1 cm x 0.6 cm 0.3 cm benign-appearing lymph node at the 1 o'clock position of the breast at 7 cm from the nipple. US/Breast Limited Unilateral IMPRESSION: 1.1 cm x 0.6 cm x 0.3 cm benign-appearing lymph node at the 1 o'clock position of the breast at 7 cm from the nipple. BI-RADS 2: BENIGN RECOMMENDATION: Routine annual follow-up in 1 Year [id number]
--- NOTE | 2025-07-21 09:11 | BI_ITS ---
EXAM: DIAG MAMM W/CAD, BILAT 07/21/2025 CLINICAL HISTORY: F, Age 85 y/o , BREAST PAIN TECHNIQUE: Procedure Code: [id number] Modality: MG Procedure: DIAG MAMM W/CAD, BILAT. COMPARISON: No prior study available for comparison. FINDINGS: TISSUE DENSITY: There are scattered areas of fibroglandular density. Bilateral Breast Mammographic Findings: No significant masses, calcifications or other abnormalities are identified. BI/DIAG MAMM W/CAD, BILAT IMPRESSION: Unremarkable screening mammogram. With the patient's history of pain in the up per deep medial portion of the right breast, targeted sonographic correlation recommended. OVERALL FINAL ASSESSMENT BI-RADS 0: INCOMPLETE - NEED ADDITIONAL IMAGING EVALUATION. RECOMMENDATION: Ultrasound Recommended A letter with findings and recommendations will be mailed to the patient. Reading Location: [id number]
[2025-07-26 07:07] LABS: Calprotectin, Stool 210 ug/g (0-120)
== END | disposition home or self-care (01) ==
PROVIDERS: Nurse Practitioner Acute Care; PCP Family Medicine
DX: N64.4 Mastodynia (principal); K59.00 Constipation, unspecified; R19.5 Other fecal abnormalities
CPT/HCPCS: 76642; 77062; 77066; 83993; G0279

== ENCOUNTER 2025-08-19 12:38 | Outpatient (CLI) | payer MEDICARE, OTHER, SELFPAY ==
[2025-08-19 12:47] VITALS: BP 109/65; PULSE 87; RESP 16; TEMP 36.4; O2SAT 98; BMI 21.1
== END 2025-08-19 23:59 | disposition home or self-care (01) ==
LOC: MEDOUTP 12:39
PROVIDERS: PCP Family Medicine; Referring Provider Nurse Practitioner Acute Care; Visit Provider Nurse Practitioner Acute Care
DX: J45.50 Severe persistent asthma, uncomplicated (principal)
CPT/HCPCS: 96372; J2182

== ENCOUNTER → 2025-08-19 | Outpatient (CLI) | payer MEDICARE, OTHER, SELFPAY ==
--- NOTE | 2025-08-19 13:24 | ECHOD_ITS ---
Reason For Study Reason For Study: AFib Procedure This was a 2D Doppler, Color Flow transthoracic echocardiogram. Exam performed in department. Left Ventricle Normal LV size. The estimated ejection fraction is 55 %. Unable to assess diastolic dysfunction. No regional wall motion abnormalities noted. Right Ventricle Normal RV size. Normal systolic function. Atria There is severe biatrial dilatation. No doppler evidence for ASD. Mitral Valve There is severe mitral annular calcification. There is no mitral valve stenosis. Mild-Moderate (1-2+) mitral valve insufficiency. Tricuspid Valve There is no tricuspid stenosis. Moderate-Severe (3+) tricuspid valve insufficiency. Pulmonary artery systolic pressure is 45 mmHg. Aortic Valve Moderate diffuse aortic valve thickening. Trisinus/trileaflet aortic valve. There is no aortic stenosis. Mild (1+) aortic valve insufficiency. Pulmonic Valve There is no pulmonic valvular stenosis. No pulmonic valve insufficiency. Great Vessels Normal sized aortic root. Pericardium/Pleural No pericardial effusion. MMode/2D Measurements & Calculations LVIDd: 4.4 cm IVSd: 1.3 cm Ao root diam: 3.5 cm LVIDs: 3.2 cm LVPWd: 1.1 cm RVDd: 4.2 cm FS: 28.7 % LAV(MOD-bp): 109.3 ml LVAd ap4: 24.1 cm2 SV(MOD-sp4): 37.6 ml LAV(MOD-bp) Indexed: 63.4 ml/m2 LVLd ap4: 7.0 cm SI(MOD-sp4): 21.8 ml/m2 LAV(MOD-sp2): 119.3 ml EDV(MOD-sp4): 69.5 ml LAV(MOD-sp4): 93.3 ml EDV(sp4-el): 70.2 ml LVAs ap4: 14.9 cm2 LVLs ap4: 6.0 cm ESV(MOD-sp4): 32.0 ml ESV(sp4-el): 31.3 ml EF(MOD-sp4): 54.0 % EF(sp4-el): 55.4 % SV(sp4-el): 38.9 ml LA A4 area: 28.5 cm2 LA dimension(2D): 5.2 cm RA A4 area: 27.3 cm2 TAPSE: 1.6 cm Time Measurements MV dec time: 0.33 sec Doppler Measurements & Calculations MV E max robert: 144.7 cm/sec Lat Peak E' Robert: 18.3 cm/sec Med Peak E' Robert: 10.0 cm/sec MV A max robert: 41.9 cm/sec E/E' lat: 7.9 E/E' med: 14.5 MV E/A: 3.5 MV V2 max: 175.6 cm/sec MV P1/2t max robert: 176.0 cm/sec Ao V2 max: 135.6 cm/sec MV max P.3 mmHg MV P1/2t: 102.3 msec Ao max P.4 mmHg MV V2 mean: 81.9 cm/sec Ao V2 mean: 87.2 cm/sec MV mean P.5 mmHg MV dec slope: 503.7 cm/sec2 Ao mean P.6 mmHg MV V2 VTI: 45.0 cm MVA(P1/2t): 2.2 cm2 Ao V2 VTI: 25.8 cm AV (velocity ratio): 0.65 AI max robert: 388.8 cm/sec LV V1 max: 85.3 cm/sec MR max robert: 442.6 cm/sec AI max P.5 mmHg LV V1 max P.9 mmHg MR max P.4 mmHg LV V1 mean P.7 mmHg AI dec slope: 158.4 cm/sec2 LV V1 mean: 60.4 cm/sec AI P1/2t: 718.6 msec LV V1 VTI: 16.8 cm PA V2 max: 92.0 cm/sec TR max robert: 266.4 cm/sec TR max P.6 mmHg ECHO/Echo Complete Interpretation Summary The estimated ejection fraction is 55 %. Unable to assess diastolic dysfunction. There is severe biatrial dilatation. Mild-Moderate (1-2+) mitral valve insufficiency. Mild (1+) aortic valve insufficiency. Ordering Physician: Hemant Hale Referring Physician: Hemant Hale Performed By: Osmany Silveira RCS
--- NOTE | 2025-08-19 14:16 | RAD_ITS ---
PROCEDURE: CHEST PA AND LATERAL 08/19/2025 REASON FOR EXAM: AMIODARONE THERAPY TECHNIQUE: Procedure Code: RADCXR Modality: DX Procedure: CHEST PA AND LATERAL COMPARISON: None. FINDINGS: There is cardiomegaly, pulmonary venous hypertension and pulmonary interstitial edema consistent with congestive heart failure. There may be some superimposed chronic interstitial lung disease. There are small bilateral pleural effusions. There is calcific vascular disease of the thoracic aorta. The upper abdominal bowel gas pattern is normal. There is dextroscoliosis of the thoracolumbar spine. RAD/Chest PA and Lateral IMPRESSION: Chronic interstitial lung disease with superimposed congestive heart failure. Other findings as noted. Reading Location: [place] [id number]
== END | disposition home or self-care (01) ==
LOC: CVS 13:23
PROVIDERS: PCP Family Medicine; Referring Provider Internal Medicine Cardiovascular Disease; Visit Provider Internal Medicine Cardiovascular Disease
DX: I34.0 Nonrheumatic mitral (valve) insufficiency (principal); Z79.899 Other long term (current) drug therapy
CPT/HCPCS: 71046; 93306

== ENCOUNTER → 2025-08-23 | Outpatient (CLI) | payer MEDICARE, OTHER, SELFPAY ==
[2025-08-23 11:10] LABS: AST(SGOT) 29 U/L (<=31); Alanine Aminotransfer ALT/SGPT 25 U/L (<=34); Albumin, Serum 4.1 g/dL (3.4-4.8); Alkaline Phosphatase 99 U/L (35-104); Anion Gap 11 (5-15); BUN 14 mg/dL (4-19); BUN/Creat Ratio 18.4 RATIO (10-20); Calcium,Total 9.2 mg/dL (7.6-11.0); Carbon Dioxide 24.1 mmol/L (21.0-32.0); Chloride 98 mmol/L (98-108); Globulin 2.7 g/dL (2.2-4.2); Glucose 91 mg/dL (70-99); Potassium 4.6 mmol/L (3.3-5.1); Pro- Brain NATRIURETIC PEPTIDE 1576 pg/mL (<=1800)
[2025-08-23 11:55] LABS: Cholesterol 147 mg/dL (<=200); Low Density Lipoprotein Calc. 76 mg/dL; Triglycerides 55 mg/dL; Very Low Density Lipoprotein 11 mg/dL (5-40); cholesterol:hdl ratio screen 2.47
== END | disposition home or self-care (01) ==
LOC: LAB 09:38
PROVIDERS: PCP Family Medicine; Referring Provider Student in an Organized Health Care Education/Training Program; Visit Provider Internal Medicine Cardiovascular Disease
DX: E78.5 Hyperlipidemia, unspecified (principal); R06.02 Shortness of breath; Z79.899 Other long term (current) drug therapy
CPT/HCPCS: 36415; 80053; 80061; 83880; 84443

== ENCOUNTER 2025-09-22 13:08 | Outpatient (CLI) | payer MEDICARE, OTHER, SELFPAY ==
[2025-09-22 13:30] VITALS: RESP 16; TEMP 36.4; BMI 20.9
== END 2025-09-22 23:59 | disposition home or self-care (01) ==
LOC: MEDOUTP 13:08
PROVIDERS: PCP Family Medicine; Referring Provider Nurse Practitioner Acute Care; Visit Provider Nurse Practitioner Acute Care
DX: J45.50 Severe persistent asthma, uncomplicated (principal)
CPT/HCPCS: 96372; J2182

== ENCOUNTER 2025-10-20 12:59 | Outpatient (CLI) | payer MEDICARE, OTHER, SELFPAY ==
[2025-10-20 13:13] VITALS: BP 122/65; PULSE 86; RESP 16; TEMP 36.1; O2SAT 97
== END 2025-10-20 23:59 | disposition home or self-care (01) ==
LOC: MEDOUTP 12:59
PROVIDERS: PCP Family Medicine; Referring Provider Nurse Practitioner Acute Care; Visit Provider Nurse Practitioner Acute Care
DX: J45.50 Severe persistent asthma, uncomplicated (principal)
CPT/HCPCS: 96372; J2182